=== PATIENT | male | born 1950 | race Caucasian/White ===

== ENCOUNTER 2018-02-15 20:03 | Emergency (ER) | payer OTHER, SELFPAY ==
[2018-02-15 20:05] VITALS: BP 153/87; PULSE 78; TEMP 36.7; O2SAT 96
--- NOTE | 2018-02-15 20:28 | ED.GENADUL ---
Disposition Clinical Impression: Left otitis externa Disposition: HOME Condition: Good Instructions: Neomycin/Polymyxin B/Hydrocortisone (Into the ear), Otitis Externa (ED) Additional Instructions: Place 4 drops of the Cortisporin in the left ear 4 times a day for the next week. Follow-up with your doctor at the end of the week if not better. Return to ED if significantly worse with increasing pain, swelling, fever. Referrals: Jama Melgar [Primary Care Provider] - Medical Decision Making - Medical Decision Making Patient with a left otitis externa that should respond to Cortisporin eardrops. He has not been swimming and does not have any purulent drainage. He may follow-up with primary care at the end of the week if not getting better and can be switched over to Ciprodex at that time if he does not respond to Cortisporin. He should return to the ED if he has significant pain, swelling, fever. History of Present Illness - General Chief complaint: EarProblem Stated complaint: EAR INFECTION Time Seen by Provider: 02/15/18 20:27 Source: patient Mode of arrival: ambulatory Limitations: no limitations - History of Present Illness Initial comments: Patient presents to the ED with left ear pain that has worsened over the day. He noticed a little bit of discharge and drainage out of it this morning. His hearing is muffled. He does tend to scratch and dig his ears but does not really stick Q-tips deep into the ear. He denies any other URI type symptoms. He has no fever. He is not diabetic. - Related Data Tramadol HCl 50 mg PO PRN tab-cap 01/20/18 Acetaminophen 650 mg PO PRN PRN 02/15/18 Neomy Sulf/Polymyx B Sulf/Hc [Cortisporin Ear Suspension] 10 ml QID btl 02/15/18 Allergies Allergy/AdvReac Type Severity Reaction Status Date / Time coconut oil Allergy Unknown Unverified 02/15/18 20:10 pineapple Allergy Unknown Unverified 02/15/18 20:10 hydrocodone bitartrate AdvReac Intermediate bradycardia Unverified 02/15/18 20:10 [From Vicodin] oxycodone AdvReac Intermediate Other (See Unverified 02/15/18 20:10 Comment) Review of Systems Constitutional: denies: chills, fever Eyes: denies: eye discharge ENT: ear pain. denies: throat pain, congestion Respiratory: denies: cough Skin: denies: rash, change in color Neurological: denies: headache Past Medical History - Past Medical History Medical history: CVA/TIA Bradycardia Surgical history: herniorraphy, vascetomy, other (B TKR) - Social History Smoking status: former smoker General Exam - General Limitations: no limitations General appearance: alert, in no apparent distress - Head Head exam: Present: atraumatic, normocephalic - Eye Eye exam: Present: normal apperance, PERRL - ENT ENT exam: Present: other (Right external ear and canal normal. Right TM slightly opacified but no bulging or erythema. Left external ear normal but tender and painful with manipulation. Canal is swollen but I see no obvious debris. TM is difficult to visualize on the left. Appears to be slightly opacified like the right but does not appear to have erythema or bulging.) - Neck Neck exam: Present: normal inspection, full ROM - Neurological Exam Neurological exam: Present: alert, oriented X3, CN II-XII intact. Absent: motor sensory deficit - Skin Skin exam: Absent: rash, erythema Course Vital Signs - 24 hr 02/15/18 20:05 Temperature 98.1 F Pulse 78 Blood Pressure 153/87 Pulse Oximetry 96
[2018-02-15] MEDS: Cortisporin OTIC SUSP 10 ML BTL (20:39)
== END 2018-02-15 20:40 | disposition home or self-care (01) ==
PROVIDERS: Emergency Provider Emergency Medicine; PCP Family Medicine
DX: H60.502 Unspecified acute noninfective otitis externa, left ear (principal)
CPT/HCPCS: 99283

== ENCOUNTER 2018-02-17 10:34 | Emergency (ER) | payer OTHER, SELFPAY ==
[2018-02-17 10:53] VITALS: BP 169/105; PULSE 80; RESP 16; TEMP 37.1; O2SAT 99
--- NOTE | 2018-02-17 11:07 | ED.GENADUL ---
Disposition Clinical Impression: Otitis externa Disposition: HOME Condition: Good Instructions: Otitis Externa (ED) Additional Instructions: Take medications as prescribed. Our care management team will work towards getting you a follow-up appointment in otolaryngology clinic. Tylenol and/or ibuprofen as needed for pain. Return if you develop a fever, worsening pain, or any other acute concerns. Prescriptions: Levofloxacin [Levaquin] 750 mg PO DAILY #10 tablet Medical Decision Making - Medical Decision Making 67-year-old male presents with persistent left ear pain. He does have persistent signs of otitis externa and I will have him continue the Cortisporin drops. Cannot exclude a bullous myringitis will place him on Levaquin which will also cover for the less likely possibility of mastoiditis. We will ask care management to arrange a follow-up in otolaryngology clinic. He will can escalate his outpatient management of pain to include Tylenol and ibuprofen. Return precautions to the ER were discussed with patient History of Present Illness - General Chief complaint: EarProblem Stated complaint: EAR PROBLEM Time Seen by Provider: 02/17/18 10:37 Source: patient, RN notes reviewed Mode of arrival: ambulatory Limitations: no limitations - History of Present Illness Initial comments: 67-year-old male presents with persistent left ear pain since being seen in the emergency department on February 15. At that time he had evidence of otitis externa and was started on Cortisporin drops. Since that time he has had constant, moderate to severe left-sided ear pain without significant exacerbating or ameliorating factors. It does improve minimally so with ibuprofen at home. Has not had fever or drainage. Is not a difficulty swallowing or change to voice. No other modifying factors per - Related Data Tramadol HCl 50 mg PO PRN tab-cap 01/20/18 Acetaminophen 650 mg PO PRN PRN 02/15/18 Neomy Sulf/Polymyx B Sulf/Hc [Cortisporin Ear Suspension] 10 ml QID btl 02/15/18 Ibuprofen 200 - 400 mg PO PRN PRN 02/17/18 Levofloxacin [Levaquin] 750 mg PO DAILY #10 tablet 02/17/18 Allergies Allergy/AdvReac Type Severity Reaction Status Date / Time coconut oil Allergy Unknown Unverified 02/17/18 10:57 pineapple Allergy Unknown Unverified 02/17/18 10:57 hydrocodone bitartrate AdvReac Intermediate bradycardia Unverified 02/17/18 10:57 [From Vicodin] oxycodone AdvReac Intermediate Other (See Unverified 02/17/18 10:57 Comment) Review of Systems Other: 6 systems reviewed, otherwise negative Past Medical History - Past Medical History Medical history: CVA/TIA Bradycardia Surgical history: herniorraphy, vascetomy, other (B TKR) General Exam - General Limitations: no limitations General appearance: alert, in no apparent distress - Head Head exam: Present: atraumatic, normocephalic - Eye Eye exam: Present: PERRL - ENT ENT exam: Present: normal orophraynx, other (Left tympanic membrane is not visualized due to what appears to be bolus like swelling of the ear canal, there is no drainage, there is appear to be patency to the external ear canal. Right hepatic and brain unremarkable. There is no significant lymphadenopathy of the neck ) - Neck Neck exam: Present: normal inspection, tenderness, full ROM. Absent: lymphadenopathy - Respiratory Respiratory exam: Present: normal lung sounds bilaterally. Absent: respiratory distress, chest wall tenderness - Cardiovascular Cardiovascular Exam: Present: regular rate, normal rhythm - GI/Abdominal GI/Abdominal exam: Present: soft. Absent: distended, tenderness - Extremities Exam Extremities exam: Present: normal inspection, normal capillary refill - Neurological Exam Neurological exam: Present: alert, oriented X3 - Psychiatric Psychiatric exam: Present: normal affect, normal mood - Skin Skin exam: Present: warm, dry, intact Course Vital Signs - 24 hr 02/17/18 10:53 Temperature 37.1 C Pulse 80 Respiratory 16 Rate Blood Pressure 169/105 Pulse Oximetry 99
--- NOTE | 2018-02-18 08:26 | PDOC.ERCMPRO ---
Care Management Progress Note 02/18-Dr. Connolly requested assistance with an ENT f/u in one week for otitis extera (recurrent). Referral faxed to ENT today,
== END 2018-02-17 11:26 | disposition home or self-care (01) ==
PROVIDERS: Emergency Provider Emergency Medicine; PCP Family Medicine
DX: H60.502 Unspecified acute noninfective otitis externa, left ear (principal); H92.02 Otalgia, left ear
CPT/HCPCS: 99283

== ENCOUNTER 2019-02-22 01:14 | Outpatient (CLI) | payer OTHER, SELFPAY ==
--- NOTE | 2019-02-22 14:27 | DI.US_ITS ---
SYMPTOMS/DIAGNOSIS: ? 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 There is no evidence of a inguinal hernia seen on the right or on the left. IMPRESSION: No sonographic evidence to suggest an inguinal hernia.
== END 2019-02-22 01:34 ==
PROVIDERS: PCP Family Medicine; Visit Provider Surgery
DX: K40.21 Bilateral inguinal hernia, without obstruction or gangrene, recurrent (principal)
CPT/HCPCS: 76857

== ENCOUNTER 2019-07-31 18:43 | Outpatient (REF) | payer OTHER, SELFPAY ==
[2019-07-31 18:07] LABS: ALT 28 U/L (16-63); AST 17 U/L (15-37); Albumin 3.9 g/dL (3.4-5.0); Alkaline Phosphatase 63 U/L (46-116); Anion Gap 11.8 mmol/L (3-11); BUN 17 mg/dL (7-18); Bilirubin, Total 0.3 mg/dL (0.2-1.0); CO2 25.2 mmol/L (21.0-32.0); CREATININE 0.86 mg/dL (0.70-1.30); Calcium 8.3 mg/dL (8.5-10.1); Chloride 103 mmol/L (98-107); Glucose 87 mg/dL (74-106); Potassium 4.1 mmol/L (3.5-5.1); Sodium 140 mmol/L (136-145); Total Protein 6.9 g/dL (6.4-8.2)
[2019-07-31 18:15] LABS: HGB 13.7 g/dL (13.5-17.5); Mean Corp. HGB Concentration 33.4 g/dL (32.0-36.0); Mean Corpuscular Hemoglobin 30.3 pg (27.0-33.0); Mean Corpuscular Volume 90.7 fL (80-95); Mean Platelet Volume 9.7 fL (8.0-11.0); Platelet Count 269 x1000/uL (130-400); RBC 4.52 m/cumm (4.50-6.00); RBC Distribution Width 14.2 % (11.8-14.1); White Blood Cell Count 6.34 k/cumm (4.4-10.8)
[2019-07-31 18:56] LABS: Hemoglobin A1C 6.1 % (3.8-5.6)
== END 2019-07-31 19:03 ==
LOC: NCHCN 18:43
PROVIDERS: PCP Family Medicine; Visit Provider Nurse Practitioner Family
DX: R03.0 Elevated blood-pressure reading, without diagnosis of hypertension (principal)
CPT/HCPCS: 80053; 85027; 83036

== ENCOUNTER 2019-08-01 14:09 | Outpatient (CLI) | payer OTHER, SELFPAY ==
--- NOTE | 2019-08-01 15:38 | DI.RAD_ITS ---
EXAM: XR RIBS RT W PA LAT CHEST INDICATION: RIB PAIN, R07.81. COMPARISON: CHEST 2 VIEWS PA,LAT from 11/26/2017 TECHNIQUE: 2D digital imaging was performed. FINDINGS: The heart size and pulmonary vasculature are within normal limits. The lungs are clear. There is an old calcified granuloma in the left lung. No pleural effusion or pneumothorax is identified. There are minimally displaced fractures involving the anterior aspects of the right 7th and 8th ribs. IMPRESSION: Minimally displaced fractures involving the anterior aspects of the right 7th and 8th ribs.
== END 2019-08-01 14:29 ==
PROVIDERS: PCP Family Medicine; Visit Provider Nurse Practitioner Family
DX: R07.81 Pleurodynia (principal); S22.41XA Multiple fractures of ribs, right side, initial encounter for closed fracture
CPT/HCPCS: 71046; 71100

== ENCOUNTER 2019-08-14 22:14 | Outpatient (REF) | payer OTHER, SELFPAY ==
[2019-08-14 19:57] LABS: HCT 44.7 % (40.0-50.0); HGB 14.8 g/dL (13.5-17.5); Mean Corp. HGB Concentration 33.1 g/dL (32.0-36.0); Mean Corpuscular Hemoglobin 30.6 pg (27.0-33.0); Mean Corpuscular Volume 92.5 fL (80-95); Mean Platelet Volume 10.3 fL (8.0-11.0); Platelet Count 244 x1000/uL (130-400); RBC 4.83 m/cumm (4.50-6.00); RBC Distribution Width 14.6 % (11.8-14.1); White Blood Cell Count 5.59 k/cumm (4.4-10.8)
[2019-08-14 20:18] LABS: ALT 34 U/L (16-63); AST 18 U/L (15-37); Albumin 4.3 g/dL (3.4-5.0); Alkaline Phosphatase 96 U/L (46-116); Anion Gap 8.8 mmol/L (3-11); BUN 17 mg/dL (7-18); Bilirubin, Total 0.4 mg/dL (0.2-1.0); CO2 27.2 mmol/L (21.0-32.0); CREATININE 0.93 mg/dL (0.70-1.30); Calcium 8.5 mg/dL (8.5-10.1); Chloride 105 mmol/L (98-107); Glucose 98 mg/dL (74-106); Potassium 4.5 mmol/L (3.5-5.1); Sodium 141 mmol/L (136-145); Total Protein 7.1 g/dL (6.4-8.2)
[2019-08-14 20:29] LABS: Hemoglobin A1C 6.1 % (3.8-5.6)
== END 2019-08-14 22:34 ==
LOC: NCHCN 22:14
PROVIDERS: PCP Family Medicine; Visit Provider Nurse Practitioner Family
DX: R03.0 Elevated blood-pressure reading, without diagnosis of hypertension (principal)
CPT/HCPCS: 80053; 85027; 83036

== ENCOUNTER 2021-02-05 11:41 | Outpatient (CLI) | payer OTHER, SELFPAY ==
--- NOTE | 2021-02-05 11:15 | DI.RAD_ITS ---
Exam(s) XR SHOULDER LT COMPLETE 2+V EXAM: XR SHOULDER LT COMPLETE 2+V CLINICAL HISTORY: LEFT SHOULDER PAIN. TECHNIQUE: 2D digital imaging was performed. COMPARISON: CR CHEST 2 VIEWS PA,LAT from 11/26/2017 CR CHEST 2 VIEWS PA,LAT from 11/26/2017 CR XR RIBS RT W PA LAT CHEST from 08/01/2019 CR XR RIBS RT W PA LAT CHEST from 08/01/2019 FINDINGS: BONES: No acute fracture is present. No bony destructive lesion is seen. There are old left upper ri b fracture deformities. JOINTS: No dislocation present. Glenohumeral joint space is well maintained. Minimal spurring at th e glenoid. Minimal spurring at the AC joint and undersurface of the acromion. SOFT TISSUE: Normal. IMPRESSION: Mild degenerative changes. Old left upper rib fractures. DATA REPOSITORY: RADIATION DOSE DELIVERED:
== END 2021-02-05 11:42 | disposition home or self-care (01) ==
LOC: DIORS 11:41
PROVIDERS: PCP Family Medicine; Referring Provider Family Medicine; Visit Provider Student in an Organized Health Care Education/Training Program
DX: M19.012 Primary osteoarthritis, left shoulder (principal); S22.42XD Multiple fractures of ribs, left side, subsequent encounter for fracture with routine healing; W19.XXXD Unspecified fall, subsequent encounter
CPT/HCPCS: 73030

== ENCOUNTER 2021-05-21 20:34 | Outpatient (REF) | payer OTHER, SELFPAY ==
[2021-05-21 20:38] LABS: Anion Gap 7.8 mmol/L (3-11); BUN 13 mg/dL (7-18); CO2 29.2 mmol/L (21.0-32.0); CREATININE 0.9 mg/dL (0.70-1.30); Calcium 9.2 mg/dL (8.5-10.1); Calculated LDL 169 mg/dL (<100); Chloride 102 mmol/L (98-107); Cholesterol 233 mg/dL (<200); Glucose 106 mg/dL (74-106); HDL Cholesterol 44 mg/dL (40-60); Potassium 4.7 mmol/L (3.5-5.1); Sodium 139 mmol/L (136-145); Triglyceride 100 mg/dL (<150)
== END 2021-05-21 20:35 | disposition home or self-care (01) ==
LOC: NCHCN 20:34
PROVIDERS: PCP Family Medicine; Visit Provider Family Medicine
DX: I10 Essential (primary) hypertension (principal); Z00.00 Encounter for general adult medical examination without abnormal findings
CPT/HCPCS: 80048; 80061

== ENCOUNTER 2021-05-21 23:16 | Observation (INO) | payer OTHER, SELFPAY ==
[2021-05-21] VITALS (8 sets, daily range): BP systolic 102–121; BP diastolic 57–60; PULSE 84–96; RESP 9–18; TEMP 36.9; O2SAT 92–96
--- NOTE | 2021-05-21 23:15 | DI.RAD_ITS ---
Exam(s) XR PORTABLE CHEST AP EXAM: XR PORTABLE CHEST AP CLINICAL HISTORY: syncope TECHNIQUE: 2D digital imaging was performed. COMPARISON: CR CHEST 2 VIEWS PA,LAT from 09/25/2017 CR XR SHOULDER LT COMPLETE 2+V from 02/05/2021 FINDINGS: LUNGS: Clear. No pleural abnormality seen. HEART: Within normal limits for projection. MEDIASTINUM: Normal. BONES: Unremarkable. IMPRESSION: No acute pulmonary findings. DATA REPOSITORY: RADIATION DOSE DELIVERED:
--- NOTE | 2021-05-21 23:15 | RT.EKG_ITS ---
APPROVED REPORT Exam: Resting ECG Reason for Exam: left sided weakness Patient Location: E HR:94 bpm ECG Measurements Heart Rate 94 AXIS NV 144 P 38 QRSd 79 QRS 10 QT 340 T 59 QTc 425 Conclusion Sinus rhythm...normal P axis, V-rate 60- 99 Normal [place] No Acute ST Changes
--- NOTE | 2021-05-21 23:32 | ED.GENADUL_ITS ---
Discharge Plan Disposition Patient Disposition: [facility] INPATIENT Condition: Stable Discharge Details Clinical Impression: Syncope Primary Care Provider: Jama Melgar ED Provider: Chauncey Barraza [place] Meds and New Rx's Prescriptions: No Action lisinopril 5 mg tablet 5 mg PO DAILY RF: 0 acetaminophen 325 MG tablet 650 mg PO PRN PRNRF: 0 ibuprofen 200 MG capsule 200 - 400 mg PO PRN PRNRF: 0 Medical Decision Making Patient presenting with 2 episodes of syncope while coming to hospital due to s haking chills and sweats after receiving Pneumovax this morning. Left arm is very painful but there is no erythema or swelling. Patient denies feeling unwell prior to vaccination. He denies any headache, chest pain, shortness of breath, abdominal pain, back pain, neurologic changes. IV established and fluids started. Sinus rhythm on the monitor. EKG is normal. Laboratory studies sent. Chest x-ray and urine ordered. Laboratory studies are unremarkable other than a white count that is elevated to 20.8. Hemoglobin normal. Chemistries unremarkable. Troponin negative. Urinalysis negative except for some small ketones. No evidence of UTI. Chest x-ray unremarkable per preliminary radiology read. Patient has remained in sinus rhythm on the monitor. May all be reaction to the Pneumovax shot he had today but given 2 episodes of syncope with sinus rhythm noted on the monitor soon after the second episode will admit for observation overnight on telemetry. Discussed with hospitalist who is in agreement with admission. Medical Records Medical records reviewed: Yes I reviewed the patient's medical records. Lab Data Lab results reviewed: Yes I reviewed the patient's lab results. ECG Data Attestation: I personally reviewed and interpreted this ECG (s) as follows: Prior ECG tracings: not available for review Interpretation: see EKG HPI General Mode of arrival: wheelchair . Date/Time Provider Initiated Documentation: 05/21/21 23:27 . Limitations to Documentation: no limitations . Information obtained by: patient, RN notes reviewed and old records reviewed . HPI Narrative: Patient presents to the ED with syncope. Patient received Pneumovax late this morning. Left arm is extremely painful and sore. He developed shaking chills this evening which is actually what prompted him to come to the ED. He felt weak and was diaphoretic. In the truck on the way to the hospital he passed out. He was awake for nursing when he was brought into the ED but passed out a second time in the wheelchair on the way to the room. On my arrival to the room, he is awake and alert. He is diaphoretic. He is nonfocal. He denies any pain except to his left arm where he had his shot. There were no other vaccinations or medication changes. He was not feeling unwell prior to getting his vaccination this morning. Related Data Home Medications Medication Instructions Recorded Confirmed acetaminophen 650 mg PO PRN PRN 02/15/18 02/05/21 ibuprofen 200 - 400 mg PO PRN PRN 02/17/18 02/05/21 lisinopril 5 mg tablet 5 mg PO DAILY 10/13/19 05/21/21 Allergies Allergy/AdvReac Type Severity Reaction Status Date / Time coconut oil Allergy Unknown Unverified 02/05/21 11:18 pineapple Allergy Unknown Unverified 02/05/21 11:18 hydrocodone bitartrate AdvReac Intermediate bradycardia Unverified 02/05/21 11:18 [From Vicodin] oxycodone AdvReac Intermediate Bradycardia, Unverified 02/05/21 11:21 Hypotension General Stated Complaint: GenMedical DEEPTI: 3 Review of Systems Narrative: 04/10 Review of Systems completed and is negative except as stated above in HPI (Systems reviewed: Const, Eyes, ENT, Resp, CV, GI, , MSK, Skin, Neuro) [facility] Active Problem List Carpal tunnel syndrome of left wrist (Acute) Cervical radiculopathy (Acute) Tendinitis of long head of biceps brachii of left shoulder (Acute) Acromioclavicular joint separation (Acute) Encounter for screening for other viral diseases (Acute) Skin tag (Acute) Trigger finger, right ring finger (Acute) Discharge planning issues (Acute) Acute alcoholic intoxication in alcoholism (blood level 0.08-0.29) (Acute) Pneumothorax on left (Acute) Medical History Fracture of five ribs of left side HTN (hypertension) Surgical History 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 DOMINGUEZ Left Knee/ Dr. Domingeuz S/P bilateral inguinal hernia repair Dr. Schultz (1985) Social History Smoking/Tobacco Use Status: Former Tobacco Use Smoking risk assessment performed?: Yes Alcohol Intake: current Alcohol Intake frequency: 0-2 drinks per day Drug use: Never Current gender identity: male Do you feel safe in your relationship?: Yes Exam Narrative Exam Narrative: Const: WDWN male in NAD. HEENT: NC/AT. Normal facial exam. Eyes: Normal conjunctiva and sclera. Neck: Supple. Trachea midline. Lungs: Normal respiratory effort. Lungs are clear. Cor: RRR without murmur/gallop. Good radial pulses. GI: Soft. NT/ND. No guarding or rebound. Neuro: A+O x 3. Normal speech, mentation, gait. Cranial nerves II - XII grossly intact. No gross motor or sensory deficit. Ext: No C/C/E. Limited ROM of LUE due to pain from vaccination. NVI distal. Skin: Warm and diaphoretic without rash. Course Vital Signs Vital signs: Vital Signs Temperature 98.5 F 05/21/21 23:25 Pulse 84 05/21/21 23:25 Respiratory Rate 18 05/21/21 23:25 Blood Pressure 102/57 L 05/21/21 23:25 Pulse Oximetry 95 05/21/21 23:25 Temperature 98.5 F 05/21/21 23:25 Temperature Source Oral 05/21/21 23:25 Pulse 84 05/21/21 23:25 Respiratory Rate 18 05/21/21 23:25 Blood Pressure 102/57 L 05/21/21 23:25 Blood Pressure Position Supine 05/21/21 23:25 Pulse Oximetry 95 05/21/21 23:25 Oxygen Delivery Method Room Air 05/21/21 23:25 Oxygen Flow Rate 0 05/21/21 23:25 Pain Level 5 05/21/21 23:25
[2021-05-21 23:43] LABS: Source Nasal/Nares
[2021-05-21 23:46] LABS: Absolute Lymphocyte Count 2.23 10^3/uL (1.2-3.4); Absolute Neutrophil Count 16.85 10^3/uL (1.2-6.7); Basophils % 0.2; Eosinophils % 0.5; HGB 14.7 g/dL (13.5-17.5); Immature Grans % 0.5; Lymphocytes % 10.7; MCH 29.8 pg (27.0-33.0); MCV 93.1 fL (80-95); MPV 9.5 fL (8.0-11.0); Monocytes % 7.2; Neutrophils % 80.9; Nucleated RBC 0 %; Platelet Count 336 10^3/uL (130-400); RBC 4.94 10^6/uL (4.36-5.78); RDW 13.7 % (11.8-14.1); RDW-SD 46.8 fL; WBC 20.83 10^3/uL (4.4-10.8)
[2021-05-21] MEDS: Lactated Ringers 1,000 ML 1000 ML IV (23:46)
[2021-05-21 23:48] LABS: Absolute Basophil Count 0.04 10^3/uL (0.0-0.2); Lactate 2.2 mmol/L (0.6-1.4)
[2021-05-22] VITALS (22 sets, daily range): BP systolic 103–116; BP diastolic 54–71; PULSE 69–97; RESP 10–30; TEMP 37.2; O2SAT 90–96
[2021-05-22 00:11] LABS: ALT 17 U/L (16-63); AST 12 U/L (15-37); Albumin 3.7 g/dL (3.4-5.0); Alkaline Phosphatase 84 U/L (46-116); Anion Gap 10.5 mmol/L (3-11); BUN 16 mg/dL (7-18); Bilirubin, Total 0.4 mg/dL (0.2-1.0); CO2 24.5 mmol/L (21.0-32.0); CREATININE 1.1 mg/dL (0.70-1.30); Calcium 8.7 mg/dL (8.5-10.1); Chloride 102 mmol/L (98-107); Glucose 160 mg/dL (74-106); Magnesium 2.1 mg/dL (1.8-2.4); Potassium 3.8 mmol/L (3.5-5.1); Sodium 137 mmol/L (136-145); TSH (W/Ref FT4) 4.14 uIU/mL (0.36-3.74)
[2021-05-22 00:12] LABS: Troponin I < 0.05 ng/mL (<0.06)
[2021-05-22 00:30] LABS: Bilirubin Small (Negative); Blood Negative (Negative); Clarity Clear (Clear); Glucose Negative (Negative); Ketones 15 mg/dL (Negative); Leukocyte Esterase Negative (Negative); Nitrite Negative (Negative); Specific Gravity 1.025 (1.005-1.025); pH 6.5 (5-8)
--- NOTE | 2021-05-22 00:33 | DI.VRAD_ITS ---
PROCEDURE INFORMATION: Exam: XR Chest Exam date and time: 05/21/2021 11:29 PM Age: 70 years old Clinical indication: Other: Syncope TECHNIQUE: Imaging protocol: XR of the chest. Views: 1 view. COMPARISON: CR XR RIBS RT W PA LAT CHEST 08/01/2019 3:38 PM FINDINGS: Lungs: Unremarkable. No consolidation. Pleural spaces: Unremarkable. No pleural effusion. No pneumothorax. Heart/Mediastinum: Unremarkable. No cardiomegaly. Bones/joints: Unremarkable. IMPRESSION: No acute findings. Dictated and Authenticated by: Javi Gordon MD. Ordering:ABHIJEET Grossman MD
[2021-05-22] MEDS: Lactated Ringers 1,000 ML 200 ML IV (00:49)
--- NOTE | 2021-05-22 02:12 | W.PM.HP.N ---
Date of service: 05/22/21 Time of Service: 02:13 Assessment and Plan Assessment and plan (1) Syncope: Status: Acute Assessment and plan: Whlie the patient does have a h/o vasavagal syncopal episodes, he did present with a slightly lower lip following vaccine administration earlier in the day. Given this, though other features of anaphylaxis are absent, it is certainly plausible that there is an anaphylactic component to what happened. Will treat with solumedrol, pepcid, benadryl and monitor for improvement of sx. Obtain monocyte tryptase. Will monitor on tele and hydrate with IVF. Trend troponins. Check orthostatics. (2) Reaction to Pneumovax immunization: Status: Acute Assessment and plan: As above (3) Leucocytosis: Status: Acute Assessment and plan: Suspect that this is due to the vaccination and/or reaction to it. CXR negative. Procalcitonin is negative. Will trend WBCs, though this is skewed by the fact that the patient will be getting steroids. CRP is slightly elevated, but is not specific. IF spikes a fever, would obtain blood cultures. (4) Dehydration: Status: Acute Assessment and plan: IVF. Likely responsible for lactic acidosis. Trend LA. (5) DVT prophylaxis: Status: Acute Assessment and plan: SC enoxaparin (6) Discharge planning issues: Status: Acute Assessment and plan: Full code Place in observation status History of Present Illness History of Present Illness Chief Complaint: Two syncopal episodes following a pneumovax vaccine Narrative: Mr Charles is a 70 year old male with PMHx of prior vasovagal syncopal episodes (10-12 of them), PACs, hypertension, , traumatic pneumothorax, cervical radiculopathy, who is s/p pneumovax on 05/21/21 and presented to [facility] ED in the evening, initially planning to go to the ED for shaking chills and sweats. The patient's felt his bottom lip looked a little bit swollen. On the way to the ED, while in the vehicle, the patient became unresponsive. We do not know how long he was unconscious exactly, but he remembers waking up in the parking lot of the hospital and being taken to the ED in a wheel chair, where he had another syncopal episode, this time witnessed, though not yet on a asl interpreter. Vital signs were stable, and when the monitor was hooked up/EKG obtained, the patient was in NSR. The patient was found to have a leucocytosis and monocytosis. He did not have any other signs of anaphylaxis, specifically denying itching, difficulty swallowing, swelling of the tongue, shortness of breath. Observation on the hospitalist service was requested Review of Systems All systems reviewed & are unremarkable except as noted in HPI and below [facility] Active Problem List (Updated 05/22/21 @ 03:19 by Rylee Worrell MD) Leucocytosis (Acute) Dehydration (Acute) DVT prophylaxis (Acute) Reaction to Pneumovax immunization (Acute) Syncope (Acute) Carpal tunnel syndrome of left wrist (Acute) Cervical radiculopathy (Acute) Tendinitis of long head of biceps brachii of left shoulder (Acute) Acromioclavicular joint separation (Acute) Skin tag (Acute) Discharge planning issues (Acute) Medical History (Updated 05/22/21 @ 03:19 by Rylee Worrell MD) Acute alcoholic intoxication in alcoholism (blood level 0.08-0.29) Cataract Fracture of five ribs of left side HTN (hypertension) Pneumothorax on left Trigger finger, right ring finger Injected: 10/13/2019 Vasovagal syncope Surgical History (Updated 05/22/21 @ 03:15 by Rylee Worrell MD) H/O elbow surgery right tennis elbow surgery 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 DOMINGUEZ Left Knee/ Dr. Dominguez S/P bilateral inguinal hernia repair Dr. Schultz (1985) Family History (Updated 05/22/21 @ 03:13 by Rylee Worrell MD) Father Hypertension Stroke Social History (Updated 05/22/21 @ 03:16 by Rylee Worrell MD) Smoking/Tobacco Use Status: Current every day Tobacco Type: cigarettes Smoking packs per day: 1 Smoking cigarettes per day: 20.0 Counseling given: provider counseling and patient declined Smoking risk assessment performed?: Yes Alcohol Intake: current Alcohol Intake frequency: 0-2 drinks per day Drug use: Never Current gender identity: male Do you feel safe in your relationship?: Yes Meds Allergies and Home Medications Allergies Allergy/AdvReac Type Severity Reaction Status Date / Time coconut oil Allergy Unknown Unverified 08/11/21 11:18 pineapple Allergy Unknown Unverified 02/05/21 11:18 hydrocodone bitartrate AdvReac Intermediate bradycardia Unverified 02/05/21 11:18 [From Vicodin] oxycodone AdvReac Intermediate Bradycardia, Unverified 02/05/21 11:21 Hypotension Home Medications Medication Instructions Recorded Confirmed Type acetaminophen 650 mg PO PRN PRN 02/15/18 02/05/21 History ibuprofen 200 - 400 mg PO PRN PRN 02/17/18 02/05/21 History lisinopril 5 mg tablet 5 mg PO DAILY 10/13/19 05/21/21 History Exam Narrative Exam Narrative: General: Pleasant middle-aged male who looks well, is speaking in full sentences, A&Ox3 Neurological: A&Ox3, no focal deficits Psychiatric: Appropriate speech pattern/content Skin: Visible skin intact HEENT: Atraumatic, normocephalic, EOMI, dry MM, clear oropharynx, very mildly swollen lower lip, Mallampati 4, no submandibular or cervical lymphadenopathy, no goiter or JVD Cardiovascular: RRR, no m/r/g Lungs: CTAB Gastrointestinal: Soft, nontender, nondistended Genitourinary: deferred Extremities: No e/c/c; LUE deltoid injection site exquisitely tender but no evidence of induration/erythema Results Imaging Additional studies: CXR: No acute findings. EKG: HR 94, NSR, no acute ischemia Labs Result diagrams: 05/21/21 23:33 05/21/21 23:33 Labs: Laboratory Results - last 24 hr 05/21/21 05/21/21 05/21/21 23:33 23:33 23:33 WBC 20.83 H RBC 4.94 Hgb 14.7 Hct 46.0 MCV 93.1 MCH 29.8 MCHC 32.0 RDW 13.7 Plt Count 336 MPV 9.5 Immature Gran % 0.5 Neutrophils % 80.9 Lymphocytes % 10.7 Monocytes % 7.2 Eosinophils % 0.5 Basophils % 0.2 Nucleated RBC % 0 Absolute Neutrophils 16.85 H Absolute Lymphocytes 2.23 Absolute Monocytes 1.50 H Absolute Eosinophils 0.10 Absolute Basophils 0.04 VBG Lactate 2.2 H* Sodium 137 Potassium 3.8 Chloride 102 Carbon Dioxide 24.5 Anion Gap 10.5 BUN 16 Creatinine 1.1 Estimated GFR/1.73 m2 >= 60.00 Glucose 160 H Calcium 8.7 Magnesium 2.1 Total Bilirubin 0.4 AST 12 L ALT 17 Alkaline Phosphatase 84 Troponin I < 0.05 Total Protein 7.0 Albumin 3.7 TSH 4.14 H Free T4 0.80 Urine Color Urine Clarity Urine pH Ur Specific [place] Urine Protein Urine Ketones Urine Blood Urine Nitrite Urine Bilirubin Urine Urobilinogen Ur Leukocyte Esterase Urine Glucose COVID-19 Source 05/21/21 05/22/21 23:33 00:27 WBC RBC Hgb Hct MCV MCH MCHC RDW Plt Count MPV Immature Gran % Neutrophils % Lymphocytes % Monocytes % Eosinophils % Basophils % Nucleated RBC % Absolute Neutrophils Absolute Lymphocytes Absolute Monocytes Absolute Eosinophils Absolute Basophils VBG Lactate Sodium Potassium Chloride Carbon Dioxide Anion Gap BUN Creatinine Estimated GFR/1.73 m2 Glucose Calcium Magnesium Total Bilirubin AST ALT Alkaline Phosphatase Troponin I Total Protein Albumin TSH Free T4 Urine Color Yellow Urine Clarity Clear Urine pH 6.5 Ur Specific [place] 1.025 Urine Protein Negative Urine Ketones 15 H Urine Blood Negative Urine Nitrite Negative Urine Bilirubin Small H Urine Urobilinogen 2.0 H Ur Leukocyte Esterase Negative Urine Glucose Negative COVID-19 Source Nasal/Nares Last Vital Signs Temp 36.9 C 05/21/21 23:25 Pulse 83 05/22/21 01:15 Resp 14 05/22/21 01:20 BP 103/55 L 05/22/21 01:15 Pulse Ox 95 05/22/21 01:20
[2021-05-22 02:30] LABS: C-Reactive Protein 2.31 mg/dL (0.0-0.3)
[2021-05-22 03:15] LABS: Procalcitonin 0.1 ng/mL
[2021-05-22] MEDS: methylPREDNISolone SUCC 125 MG VIAL IVP (03:52)
[2021-05-22] MEDS: Normal Saline Flush 10 ML SYR IVP (03:53)
[2021-05-22] MEDS: diphenhydrAMINE 25 MG CAP 50 MG PO (03:54)
[2021-05-22] MEDS: FAMOTIDINE 20 MG/50 ML BAG 200 MG IVPB (04:01)
[2021-05-22 04:02] LABS: Troponin I < 0.05 ng/mL (<0.06)
[2021-05-22 07:29] LABS: Abs Immature Grans 0.12 10^3/uL (0.0-0.06); Absolute Basophil Count 0.04 10^3/uL (0.0-0.2); Absolute Monocyte Count 0.42 10^3/uL (0.1-0.8); Basophils % 0.2; Eosinophils % 0.1; HCT 43.8 % (40.0-50.0); HGB 14.1 g/dL (13.5-17.5); Immature Grans % 0.6; MCH 29.9 pg (27.0-33.0); MCHC 32.2 % (32.0-36.0); MCV 92.8 fL (80-95); MPV 9.5 fL (8.0-11.0); Monocytes % 2.1; Nucleated RBC 0 %; Platelet Count 231 10^3/uL (130-400); RBC 4.72 10^6/uL (4.36-5.78); RDW 13.7 % (11.8-14.1); RDW-SD 46.6 fL
[2021-05-22 07:30] LABS: Lactate 1.5 mmol/L (0.6-1.4)
[2021-05-22 07:49] LABS: Absolute Eosinophil Count 0.02 10^3/uL (0.0-0.7)
[2021-05-22 07:57] LABS: Anion Gap 12.1 mmol/L (3-11); BUN 11 mg/dL (7-18); CO2 21.9 mmol/L (21.0-32.0); CREATININE 0.8 mg/dL (0.70-1.30); Calcium 8.6 mg/dL (8.5-10.1); Calculated LDL 118 mg/dL (<100); Chloride 104 mmol/L (98-107); Cholesterol 169 mg/dL (<200); Glucose 179 mg/dL (74-106); HDL Cholesterol 42 mg/dL (40-60); Magnesium 2.1 mg/dL (1.8-2.4); Potassium 4.2 mmol/L (3.5-5.1); Sodium 138 mmol/L (136-145); Triglyceride 49 mg/dL (<150)
[2021-05-22] MEDS: Enoxaparin 40 MG/0.4 ML SYR SC (08:06)
[2021-05-22 08:07] LABS: Troponin I < 0.05 ng/mL (<0.06)
[2021-05-22 08:15] LABS: C-Reactive Protein 6.49 mg/dL (0.0-0.3)
[2021-05-22 09:16] LABS: COVID-19 PCR Negative (Negative)
--- NOTE | 2021-05-22 10:55 | W.PM.DS.N ---
Date of service: 05/22/21 Time of Service: 10:56 DS: Diagnosis Discharge Diagnosis (1) Syncope: Status: Acute (2) Reaction to Pneumovax immunization: Status: Acute (3) Leucocytosis: Status: Acute (4) Dehydration: Status: Acute Discharge Plan Disposition Patient Disposition: HOME Condition: Stable Discharge Details Reason For Visit: Two syncopal episodes, adverse reaction to pneumov Admit Date/Time: 05/22/21 01:33 Admit Provider: Rylee Worrell Attending Provider: Rylee Worrell Primary Care Provider: Jama Melgar [facility] Course Hospital Course: Presented to the ED after receiving pneumonvax and developing shaking, lower lip swelling and generally not feeling well. he proceeded to have 2 syncopal episodes, no evidence of seizure activity. [place]l diaphoretic and sense he was going to go out. his work up in the ED showed a leucocytosis and monocytosis. He did not have any other signs of anaphylaxis, specifically denying itching, difficulty swallowing, swelling of the tongue, shortness of breath. he has had multiple syncopal episodes in the past. He was referred to observation overnight on telemetry, remains hemodynamically stable with no dysrhythmias. He feels at his baseline and is requesting discharge to home. A holter monitor has been placed at discharge. he is being discharged to home with no services. he will f/u with pcp outpatient or return sooner for new or worsening symptoms. serial troponins have been negative. discharge discussed with Dr Davis Home Meds and New Rx's Prescriptions: Continued lisinopril 5 mg tablet 5 mg PO DAILY RF: 0 acetaminophen 325 MG tablet 650 mg PO PRN PRNRF: 0 ibuprofen 200 MG capsule 200 - 400 mg PO PRN PRNRF: 0 Discharge Instructions Instructions: Syncope (DC) Stand Alone Forms: Nursing Discharge Form Referrals: Jama Melgar [Primary Care Provider] - (Please call you PCP to make follow up appointment for 1-2 weeks.) Activity:: Activity as Tolerated Equipment/Supplies:: No Equipment Needed Diet:: As Tolerated Discharge Orders Discharge Orders: Discharge Order (Routine); Ordered 05/22/21 Ordered By: Karly Parra Other Ambulatory Orders: Holter Monitor (Routine) Timeframe: [id number] Facility: [facility] - Location: Respiratory Therapy Ordered By: Karly Parra Discharge Data Discharge Date/Time-TO BE ENTERED AT DEPARTURE: 05/22/21 12:06 DS: Summary Time Spent with Patient providing and/or coordinating discharge services: Less than 30 minutes Status at Discharge Functional status at discharge: independent ambulation Overall status at discharge: patient is back to baseline Mental Status: mental status grossly normal Speech and Movement: speech and movement normal Mood: congruent mood Affect: normal affect Exam Const General: cooperative, healthy appearing, comfortable and no acute distress Nutritional Appearance: average body habitus Orientation: alert, awake and oriented x3 HENMT Head: normal to inspection, normocephalic and atraumatic Mouth: oral mucosae normal Resp Effort & Inspection: normal respiratory effort Auscultation: clear to auscultation bilaterally Cardio Rate: regular rate Rhythm: regular rhythm GI Inspection: normal to inspection Palpation: soft Auscultation: normal bowel sounds Skin General skin exam: no rashes or lesions noted Neuro General: patient alert, patient awake and patient oriented x3 Cognition: normal cognition Speech: speech normal Gait: normal gait Extrem General: normal to inspection and full ROM Psych Mental Status: mental status grossly normal Speech and Movement: speech and movement normal Mood: congruent mood Affect: normal affect DS: Data Vitals/I&O Vitals and I&O: Vital Signs Temperature 37.2 C 05/22/21 03:52 Temperature Source Oral 05/21/21 23:25 Pulse 78 05/22/21 07:03 Pulse Rhythm Regular 05/22/21 09:04 Pulse 97 H 05/22/21 01:20 Respiratory Rate 18 05/22/21 03:05 Respiratory Effort Non-Labored 05/22/21 09:04 Respiratory Depth Normal 05/22/21 09:04 Respiratory Pattern Normal 05/22/21 09:04 Blood Pressure 112/68 05/22/21 05:37 Blood Pressure Mean 66 05/22/21 01:15 Blood Pressure Position Supine 05/21/21 23:25 Pulse Oximetry 95 05/22/21 03:05 Oxygen Delivery Method Room Air 05/22/21 03:05 Oxygen Flow Rate 0 05/22/21 03:05 Pain Level 4 05/22/21 03:52 Intake & Output 05/21/21 05/21/21 05/22/21 11:59 23:59 11:59 Output Total 1000 / 1000 Balance -1000 / -1000 Weight 78.471 kg 81.783 kg Output: Urine 1000 / 1000 Other: Urine Color Yellow Urine Appearance Clear Voiding Methods Toilet Data Completed and Pending Labs on day of discharge: Labs from last 24 hours 05/22/21 05/22/21 05/22/21 07:10 07:10 07:10 WBC 20.00 H RBC 4.72 Hgb 14.1 Hct 43.8 MCV 92.8 MCH 29.9 MCHC 32.2 RDW 13.7 Plt Count 231 D MPV 9.5 Immature Gran % 0.6 Neutrophils % 94.0 Lymphocytes % 3.0 Monocytes % 2.1 Eosinophils % 0.1 Basophils % 0.2 Nucleated RBC % 0 Absolute Neutrophils 18.80 H Absolute Lymphocytes 0.60 L Absolute Monocytes 0.42 Absolute Eosinophils 0.02 Absolute Basophils 0.04 VBG Lactate 1.5 H Sodium 138 Potassium 4.2 Chloride 104 Carbon Dioxide 21.9 Anion Gap 12.1 H BUN 11 Creatinine 0.8 Estimated GFR/1.73 m2 >= 60.00 Glucose 179 H Calcium 8.6 Magnesium 2.1 Total Bilirubin AST ALT Alkaline Phosphatase Troponin I < 0.05 C-Reactive Protein 6.49 H Total Protein Albumin Triglycerides 49 Total Cholesterol 169 LDL Cholesterol, Calc 118 H HDL Cholesterol 42 Tryptase Procalcitonin TSH Free T4 Urine Color Urine Clarity Urine pH Ur Specific [place] Urine Protein Urine Ketones Urine Blood Urine Nitrite Urine Bilirubin Urine Urobilinogen Ur Leukocyte Esterase Urine Glucose COVID-19 Source SARS-CoV-2 (PCR) 05/22/21 05/22/21 05/22/21 06:30 03:25 00:27 WBC RBC Hgb Hct MCV MCH MCHC RDW Plt Count MPV Immature Gran % Neutrophils % Lymphocytes % Monocytes % Eosinophils % Basophils % Nucleated RBC % Absolute Neutrophils Absolute Lymphocytes Absolute Monocytes Absolute Eosinophils Absolute Basophils VBG Lactate Sodium Potassium Chloride Carbon Dioxide Anion Gap BUN Creatinine Estimated GFR/1.73 m2 Glucose Calcium Magnesium Total Bilirubin AST ALT Alkaline Phosphatase Troponin I < 0.05 C-Reactive Protein Total Protein Albumin Triglycerides Total Cholesterol LDL Cholesterol, Calc HDL Cholesterol Tryptase Pending Procalcitonin TSH Free T4 Urine Color Yellow Urine Clarity Clear Urine pH 6.5 Ur Specific [place] 1.025 Urine Protein Negative Urine Ketones 15 H Urine Blood Negative Urine Nitrite Negative Urine Bilirubin Small H Urine Urobilinogen 2.0 H Ur Leukocyte Esterase Negative Urine Glucose Negative COVID-19 Source SARS-CoV-2 (PCR) 05/21/21 05/21/21 05/21/21 23:33 23:33 23:33 WBC 20.83 H RBC 4.94 Hgb 14.7 Hct 46.0 MCV 93.1 MCH 29.8 MCHC 32.0 RDW 13.7 Plt Count 336 MPV 9.5 Immature Gran % 0.5 Neutrophils % 80.9 Lymphocytes % 10.7 Monocytes % 7.2 Eosinophils % 0.5 Basophils % 0.2 Nucleated RBC % 0 Absolute Neutrophils 16.85 H Absolute Lymphocytes 2.23 Absolute Monocytes 1.50 H Absolute Eosinophils 0.10 Absolute Basophils 0.04 VBG Lactate 2.2 H* Sodium Potassium Chloride Carbon Dioxide Anion Gap BUN Creatinine Estimated GFR/1.73 m2 Glucose Calcium Magnesium Total Bilirubin AST ALT Alkaline Phosphatase Troponin I C-Reactive Protein Total Protein Albumin Triglycerides Total Cholesterol LDL Cholesterol, Calc HDL Cholesterol Tryptase Procalcitonin 0.1 TSH Free T4 Urine Color Urine Clarity Urine pH Ur Specific [place] Urine Protein Urine Ketones Urine Blood Urine Nitrite Urine Bilirubin Urine Urobilinogen Ur Leukocyte Esterase Urine Glucose COVID-19 Source Nasal/Nares SARS-CoV-2 (PCR) Negative 05/21/21 23:33 WBC RBC Hgb Hct MCV MCH MCHC RDW Plt Count MPV Immature Gran % Neutrophils % Lymphocytes % Monocytes % Eosinophils % Basophils % Nucleated RBC % Absolute Neutrophils Absolute Lymphocytes Absolute Monocytes Absolute Eosinophils Absolute Basophils VBG Lactate Sodium 137 Potassium 3.8 Chloride 102 Carbon Dioxide 24.5 Anion Gap 10.5 BUN 16 Creatinine 1.1 Estimated GFR/1.73 m2 >= 60.00 Glucose 160 H Calcium 8.7 Magnesium 2.1 Total Bilirubin 0.4 AST 12 L ALT 17 Alkaline Phosphatase 84 Troponin I < 0.05 C-Reactive Protein 2.31 H Total Protein 7.0 Albumin 3.7 Triglycerides Total Cholesterol LDL Cholesterol, Calc HDL Cholesterol Tryptase Procalcitonin TSH 4.14 H Free T4 0.80 Urine Color Urine Clarity Urine pH Ur Specific [place] Urine Protein Urine Ketones Urine Blood Urine Nitrite Urine Bilirubin Urine Urobilinogen Ur Leukocyte Esterase Urine Glucose COVID-19 Source SARS-CoV-2 (PCR) [facility] Active Problem List (Updated 05/22/21 @ 03:19 by Rylee Worrell MD) Leucocytosis (Acute) Dehydration (Acute) DVT prophylaxis (Acute) Reaction to Pneumovax immunization (Acute) Syncope (Acute) Carpal tunnel syndrome of left wrist (Acute) Cervical radiculopathy (Acute) Tendinitis of long head of biceps brachii of left shoulder (Acute) Acromioclavicular joint separation (Acute) Skin tag (Acute) Discharge planning issues (Acute) Medical History (Updated 05/22/21 @ 03:19 by Rylee Worrell MD) Acute alcoholic intoxication in alcoholism (blood level 0.08-0.29) Cataract Fracture of five ribs of left side HTN (hypertension) Pneumothorax on left Trigger finger, right ring finger Injected: 10/13/2019 Vasovagal syncope Surgical History (Updated 05/22/21 @ 03:15 by Rylee Worrell MD) H/O elbow surgery right tennis elbow surgery 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 DOMINGUEZ Left Knee/ Dr. Dominguez S/P bilateral inguinal hernia repair Dr. Schultz (1985) Family History (Updated 05/22/21 @ 03:13 by Rylee Worrell MD) Father Hypertension Stroke Social History (Updated 05/22/21 @ 03:16 by Rylee Worrell MD) Smoking/Tobacco Use Status: Current every day Tobacco Type: cigarettes Smoking packs per day: 1 Smoking cigarettes per day: 20.0 Counseling given: provider counseling and patient declined Smoking risk assessment performed?: Yes Alcohol Intake: current Alcohol Intake frequency: 0-2 drinks per day Drug use: Never Current gender identity: male Do you feel safe in your relationship?: Yes
== END 2021-05-22 12:06 | disposition home or self-care (01) ==
LOC: ER 05-22 01:51 → MS 05-22 02:31
PROVIDERS: Admitting Provider Internal Medicine; Emergency Provider Emergency Medicine; PCP Family Medicine; Visit Provider Internal Medicine
DX: T50.A95A Adverse effect of other bacterial vaccines, initial encounter (principal); R55 Syncope and collapse; M54.12 Radiculopathy, cervical region; F10.20 Alcohol dependence, uncomplicated; I10 Essential (primary) hypertension; E86.0 Dehydration; E87.1 Hypo-osmolality and hyponatremia; D72.828 Other elevated white blood cell count; F17.210 Nicotine dependence, cigarettes, uncomplicated; Z20.822 Contact with and (suspected) exposure to COVID-19
CPT/HCPCS: 36415; 80048; 80053; 80061; 83520; 84145; 87635; 93005; 96360; 96361; 99285; J1650; 71045; 81003; 83605; 83735; 84439; 84443; 84484; 85025; 86140; 93010; 99236; G0378; J2930

== ENCOUNTER 2021-05-22 11:51 | Outpatient (RCR) | payer OTHER, SELFPAY ==
--- NOTE | 2021-05-22 11:45 | HOLTER_ITS ---
APPROVED REPORT Conclusion This is a 48-hour Holter monitor ordered for syncope Rhythm throughout was sinus with an average heart rate of 79. Minimum was 57, maximum 126 There were rare ventricular ectopic beats There were rare atrial premature beats, very rare atrial pairs. A total of 11 self-limited atrial runs occurred. These were generally brief, 4-5 beats. There was o ne 24 beat run. All of these were asymptomatic There is no high-grade AV block, no pauses greater than 3 seconds There were no apparent patient symptoms
== END 2021-05-27 23:59 | disposition home or self-care (01) ==
LOC: RT 11:51
PROVIDERS: PCP Family Medicine; Visit Provider Family Medicine
DX: R55 Syncope and collapse (principal)
CPT/HCPCS: 93225; 93226

== ENCOUNTER 2021-05-28 02:24 | Outpatient (CLI) | payer OTHER, SELFPAY ==
[2021-05-28 12:15] LABS: Source Nasal/Nares
[2021-05-28 14:35] LABS: COVID-19 PCR Negative (Negative)
== END 2021-05-28 02:25 | disposition home or self-care (01) ==
LOC: LBO 02:24
PROVIDERS: PCP Family Medicine; Visit Provider Ophthalmology
DX: Z20.822 Contact with and (suspected) exposure to COVID-19 (principal); Z01.818 Encounter for other preprocedural examination
CPT/HCPCS: 87635

== ENCOUNTER 2021-05-30 08:09 | Day surgery (SDC) | payer OTHER, SELFPAY ==
[2021-05-30 08:34] VITALS: BP 108/69; PULSE 72; RESP 16; TEMP 36.3; O2SAT 97
[2021-05-30] MEDS: Tropicam./Phenyleph. (1/2.5%) 5 ML BTL OD ×3 (08:45→08:55)
--- NOTE | 2021-05-30 09:11 | ANES.PREOP_ITS ---
General Info Date of Service Date Performed: 05/30/21 Height: 5 ft 11 in Weight: 82.8 kg Body Mass Index (BMI): 25.4 Surgical Procedure: Operation Date: 05/30/21 10:40 Proposed Procedures Side Surgeon p Cataract Extraction with IOL Implant Right Sarabjit Moya MD Meds Allergies and Home Medications Allergies Allergy/AdvReac Type Severity Reaction Status Date / Time coconut oil Allergy Unknown Unverified 05/28/21 08:51 pineapple Allergy Unknown Unverified 05/28/21 08:51 pneumococcal vaccine AdvReac Severe Other (See Unverified 05/28/21 08:51 [From Pneumovax-23] Comment) hydrocodone bitartrate AdvReac Intermediate bradycardia Unverified 05/28/21 08:51 [From Vicodin] oxycodone AdvReac Intermediate Bradycardia, Unverified 05/28/21 08:51 Hypotension Home Medication Medication Instructions Recorded acetaminophen 650 mg PO PRN PRN 02/15/18 ibuprofen 200 - 400 mg PO PRN PRN 02/17/18 lisinopril 5 mg tablet 5 mg PO HS 10/13/19 Current Visit Medications: Current Medications Generic Name Dose Route Start Last Admin Trade Name Freq PRN Reason Stop Dose Admin Acetaminophen 1,000 mg 05/30/21 06:00 Acetaminophen 500 Mg Tab PO Q4H PRN PRN Miscellaneous Medication 0 ml 05/30/21 06:00 Prednisolone 1%, Moxifloxacin 0.5%, Nepafenac 0.1% 5ml Btl OD DIRECTED [facility] Miscellaneous Medication 0 ml 05/30/21 06:00 05/30/21 08:55 Tropicam./Phenyleph. (1/2.5%) 5 Ml Btl OD 1 drp DIRECTED HERMILO Administration Tetracaine HCl 0 ml 05/30/21 06:00 Tetracaine 0.5% 4 Ml Btl OD DIRECTED [facility] PFSH Active Problems Active Problems: Problem Status Onset Code Syncope R55 Traumatic pneumothorax S27.0XXA Discharge planning issues Z02.9 Skin tag L91.8 Acromioclavicular joint separation S43.109A Tendinitis of long head of biceps brachii of left shoulder M75.22 Cervical radiculopathy M54.12 Carpal tunnel syndrome of left wrist G56.02 Syncope R55 Reaction to Pneumovax immunization T50.A95A DVT prophylaxis Z29.9 Dehydration E86.0 Leucocytosis D72.829 Medical History Active Problem List Discharge planning issues (Acute) Skin tag (Acute) Acromioclavicular joint separation (Acute) Tendinitis of long head of biceps brachii of left shoulder (Acute) Cervical radiculopathy (Acute) Carpal tunnel syndrome of left wrist (Acute) Syncope (Acute) Reaction to Pneumovax immunization (Acute) DVT prophylaxis (Acute) Dehydration (Acute) Leucocytosis (Acute) Medical History Acute alcoholic intoxication in alcoholism (blood level 0.08-0.29) Cataract Fracture of five ribs of left side HTN (hypertension) Pneumothorax on left Trigger finger, right ring finger Injected: 10/13/2019 Vasovagal syncope Pt. stated this was a reaction to the pneumovax Medical History Comments:: Pt. 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 DOMINGUEZ Left Knee/ Dr. Dominguez S/P bilateral inguinal hernia repair Dr. Schultz (1985) Tobacco Smoking/Tobacco Use Status: Current every day Tobacco Type: cigarettes Smoking packs per day: 1 Smoking cigarettes per day: 20.0 Counseling given: provider counseling and patient declined Alcohol Alcohol Intake: current Alcohol intake frequency: 0-2 drinks per day Substance Use Substance use: Never Substance use type: does not use Vital Signs and Lab Results Vital Signs Most Recent Vital Signs in EMR: Most Recent Vital Signs Temp Pulse Resp BP Pulse Ox 36.3 C L 72 16 108/69 97 05/30/21 08:34 05/30/21 08:34 05/30/21 08:34 05/30/21 08:34 05/30/21 08:34 Lab Results Blood Type / Crossmatch: No Data to Display Complete Blood Count: White Blood Count 20.00 10^3/uL (4.4-10.8) H 05/22/21 07:10 05/22/21 Red Blood Count 4.72 10^6/uL (4.36-5.78) 05/22/21 07:10 05/22/21 Hemoglobin 14.1 g/dL (13.5-17.5) 05/22/21 07:10 05/22/21 Hematocrit 43.8 % (40.0-50.0) 05/22/21 07:10 05/22/21 Platelet Count 231 10^3/uL (130-400) 05/22/21 07:10 05/22/21 Venous Blood Lactate 1.5 mmol/L (0.6-1.4) H 05/22/21 07:10 05/22/21 Complete Metabolic Panel: Sodium Level 138 mmol/L (136-145) 05/22/21 07:10 05/22/21 Potassium Level 4.2 mmol/L (3.5-5.1) 05/22/21 07:10 05/22/21 Chloride Level 104 mmol/L (98-107) 05/22/21 07:10 05/22/21 Carbon Dioxide Level 21.9 mmol/L (21.0-32.0) 05/22/21 07:10 05/22/21 Blood Urea Nitrogen 11 mg/dL (7-18) 05/22/21 07:10 05/22/21 Creatinine 0.8 mg/dL (0.70-1.30) 05/22/21 07:10 05/22/21 Estimated GFR/1.73 m2 >= 60.00 (mL/min/1.73m2) 05/22/21 07:10 05/22/21 Magnesium Level 2.1 mg/dL (1.8-2.4) 05/22/21 07:10 05/22/21 Calcium Level 8.6 mg/dL (8.5-10.1) 05/22/21 07:10 05/22/21 Albumin 3.7 g/dL (3.4-5.0) 05/21/21 23:33 05/21/21 Glucose Level 179 mg/dL (74-106) H 05/22/21 07:10 05/22/21 C-Reactive Protein 6.49 mg/dL (0.0-0.3) H 05/22/21 07:10 05/22/21 Liver Function Panel: Alanine Aminotransferase (ALT/SGPT) 17 U/L (16-63) 05/21/21 23:33 05/21/21 Aspartate Amino Transf (AST/SGOT) 12 U/L (15-37) L 05/21/21 23:33 05/21/21 Coagulation Panel: No Data to Display Cardiac Panel: Troponin I < 0.05 ng/mL (<0.06) 05/22/21 07:10 05/22/21 Arterial Blood Gas: No Data to Display Venous Blood Gas: No Data to Display Pancreas Panel: No Data to Display Thyroid Panel: Thyroid Stimulating Hormone (TSH) 4.14 uIU/mL (0.36-3.74) H 05/21/21 23:33 05/21/21 Infectious Disease: Coronavirus (COVID-19)(PCR) Negative (Negative) 05/28/21 09:17 05/28/21 Coronavirus 2019 Source Nasal/Nares 05/28/21 09:17 05/28/21 Blood Cultures: No Data to Display Toxicology Panel: No Data to Display Imaging and Studies Imaging and Studies EKG Summary: DATE/TIME OF SERVICE: 05/21/210 Exam: Resting ECG Reason for Exam: left sided weakness Patient Location: E HR:94 bpm ECG Measurements Heart Rate 94 AXIS UT 144 P 38 QRSd 79 QRS 10 QT 340 T59 QTc 425 Conclusion Sinus rhythm...normal P axis, V-rate 60- 99 Normal [place] No Acute ST Changes Anesthesia Assessment and Plan Anesthesia History Personal History: No History of Anesthesia Complications Family History: No Family History of Anesthesia Complications Exercise Tolerance Exercise Tolerance: Metabolic Equivalents>4 Pertinent Negatives Pertinent Negatives: No Symptoms of GERD Cardiac & Pulmonary Exam Cardiac Exam: Normal S1/S2 Heart Sounds Pulmonary Exam: Clear Bilateral Breath Sounds Implantable Cardiac Device Does patient have a Pacemaker or an ICD?: No Airway Exam Known Difficult Airway: No Mallampati Class: 1 Mouth Opening: Normal (> 3cm) Thyromental Distance: Greater than 3 cm Neck Range of Motion: Full ROM Neck Circumference: Normal Teeth Condition: Removable Dentures/Plates Upper and Removable Dentures/Plates Lower ASA Classification ASA Score: ASA 2 Emergency Case?: No NPO Status NPO Status: NPO Clears >2 hours, Solids >8 hours Anesthesia Plan Resuscitation Status: Full Code Anesthesia Technique: MAC Anesthesia Airway Planned: Natural Airway Monitors Used: Standard Monitors
--- NOTE | 2021-05-30 09:43 | W.PM.DSUDISC ---
Discharge Plan Disposition Patient Disposition: HOME Condition: Good Discharge Details Attending Provider: Sarabjit Moya Primary Care Provider: Jama Melgar [place] Meds and New Rx's Prescriptions: No Action lisinopril 5 mg tablet 5 mg PO HS RF: 0 acetaminophen 325 MG tablet 650 mg PO PRN PRNRF: 0 ibuprofen 200 MG capsule 200 - 400 mg PO PRN PRNRF: 0 Discharge Instructions Stand Alone Forms: Post-op Topical Cataract, [place] (DSU) Discharge Orders Discharge Orders: Discharge Order (Routine); Ordered 05/30/21 Ordered By: Sarabjit Moya DS: Diagnosis Discharge Diagnosis (1) Cortical cataract of right eye: Status: Resolved (2) Posterior subcapsular age-related cataract, right eye: Status: Resolved
--- NOTE | 2021-05-30 09:46 | ANES.PREOP_ITS ---
General Info Date of Service Date Performed: 05/30/21 Height: 5 ft 11 in Weight: 82.8 kg Body Mass Index (BMI): 25.4 Surgical Procedure: Operation Date: 05/30/21 10:40 Proposed Procedures Side Surgeon p Cataract Extraction with IOL Implant Right Sarabjit Moya MD Meds Allergies and Home Medications Allergies Allergy/AdvReac Type Severity Reaction Status Date / Time coconut oil Allergy Unknown Unverified 05/28/21 08:51 pineapple Allergy Unknown Unverified 05/28/21 08:51 pneumococcal vaccine AdvReac Severe Other (See Unverified 05/28/21 08:51 [From Pneumovax-23] Comment) hydrocodone bitartrate AdvReac Intermediate bradycardia Unverified 05/28/21 08:51 [From Vicodin] oxycodone AdvReac Intermediate Bradycardia, Unverified 05/28/21 08:51 Hypotension Home Medication Medication Instructions Recorded acetaminophen 650 mg PO PRN PRN 02/15/18 ibuprofen 200 - 400 mg PO PRN PRN 02/17/18 lisinopril 5 mg tablet 5 mg PO HS 10/13/19 Current Visit Medications: Current Medications Generic Name Dose Route Start Last Admin Trade Name Freq PRN Reason Stop Dose Admin Acetaminophen 1,000 mg 05/30/21 06:00 Acetaminophen 500 Mg Tab PO Q4H PRN PRN Miscellaneous Medication 0 ml 05/30/21 06:00 Prednisolone 1%, Moxifloxacin 0.5%, Nepafenac 0.1% 5ml Btl OD DIRECTED [facility] Miscellaneous Medication 0 ml 05/30/21 06:00 05/30/21 08:55 Tropicam./Phenyleph. (1/2.5%) 5 Ml Btl OD 1 drp DIRECTED HERMILO Administration Tetracaine HCl 0 ml 05/30/21 06:00 Tetracaine 0.5% 4 Ml Btl OD DIRECTED [facility] PFSH Active Problems Active Problems: Problem Status Onset Code Syncope R55 Traumatic pneumothorax S27.0XXA Discharge planning issues Z02.9 Skin tag L91.8 Acromioclavicular joint separation S43.109A Tendinitis of long head of biceps brachii of left shoulder M75.22 Cervical radiculopathy M54.12 Carpal tunnel syndrome of left wrist G56.02 Syncope R55 Reaction to Pneumovax immunization T50.A95A DVT prophylaxis Z29.9 Dehydration E86.0 Leucocytosis D72.829 Medical History Active Problem List Discharge planning issues (Acute) Skin tag (Acute) Acromioclavicular joint separation (Acute) Tendinitis of long head of biceps brachii of left shoulder (Acute) Cervical radiculopathy (Acute) Carpal tunnel syndrome of left wrist (Acute) Syncope (Acute) Reaction to Pneumovax immunization (Acute) DVT prophylaxis (Acute) Dehydration (Acute) Leucocytosis (Acute) Medical History Acute alcoholic intoxication in alcoholism (blood level 0.08-0.29) Cataract Fracture of five ribs of left side HTN (hypertension) Pneumothorax on left Trigger finger, right ring finger Injected: 10/13/2019 Vasovagal syncope Pt. stated this was a reaction to the pneumovax Medical History Comments:: Pt. 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 DOMINGUEZ Left Knee/ Dr. Dominguez S/P bilateral inguinal hernia repair Dr. Schultz (1985) Tobacco Smoking/Tobacco Use Status: Current every day Tobacco Type: cigarettes Smoking packs per day: 1 Smoking cigarettes per day: 20.0 Counseling given: provider counseling and patient declined Alcohol Alcohol Intake: current Alcohol intake frequency: 0-2 drinks per day Substance Use Substance use: Never Substance use type: does not use Vital Signs and Lab Results Vital Signs Most Recent Vital Signs in EMR: Most Recent Vital Signs Temp Pulse Resp BP Pulse Ox 36.3 C L 72 16 108/69 97 05/30/21 08:34 05/30/21 08:34 05/30/21 08:34 05/30/21 08:34 05/30/21 08:34 Lab Results Blood Type / Crossmatch: No Data to Display Complete Blood Count: White Blood Count 20.00 10^3/uL (4.4-10.8) H 05/22/21 07:10 05/22/21 Red Blood Count 4.72 10^6/uL (4.36-5.78) 05/22/21 07:10 05/22/21 Hemoglobin 14.1 g/dL (13.5-17.5) 05/22/21 07:10 05/22/21 Hematocrit 43.8 % (40.0-50.0) 05/22/21 07:10 05/22/21 Platelet Count 231 10^3/uL (130-400) 05/22/21 07:10 05/22/21 Venous Blood Lactate 1.5 mmol/L (0.6-1.4) H 05/22/21 07:10 05/22/21 Complete Metabolic Panel: Sodium Level 138 mmol/L (136-145) 05/22/21 07:10 05/22/21 Potassium Level 4.2 mmol/L (3.5-5.1) 05/22/21 07:10 05/22/21 Chloride Level 104 mmol/L (98-107) 05/22/21 07:10 05/22/21 Carbon Dioxide Level 21.9 mmol/L (21.0-32.0) 05/22/21 07:10 05/22/21 Blood Urea Nitrogen 11 mg/dL (7-18) 05/22/21 07:10 05/22/21 Creatinine 0.8 mg/dL (0.70-1.30) 05/22/21 07:10 05/22/21 Estimated GFR/1.73 m2 >= 60.00 (mL/min/1.73m2) 05/22/21 07:10 05/22/21 Magnesium Level 2.1 mg/dL (1.8-2.4) 05/22/21 07:10 05/22/21 Calcium Level 8.6 mg/dL (8.5-10.1) 05/22/21 07:10 05/22/21 Albumin 3.7 g/dL (3.4-5.0) 05/21/21 23:33 05/21/21 Glucose Level 179 mg/dL (74-106) H 05/22/21 07:10 05/22/21 C-Reactive Protein 6.49 mg/dL (0.0-0.3) H 05/22/21 07:10 05/22/21 Liver Function Panel: Alanine Aminotransferase (ALT/SGPT) 17 U/L (16-63) 05/21/21 23:33 05/21/21 Aspartate Amino Transf (AST/SGOT) 12 U/L (15-37) L 05/21/21 23:33 05/21/21 Coagulation Panel: No Data to Display Cardiac Panel: Troponin I < 0.05 ng/mL (<0.06) 05/22/21 07:10 05/22/21 Arterial Blood Gas: No Data to Display Venous Blood Gas: No Data to Display Pancreas Panel: No Data to Display Thyroid Panel: Thyroid Stimulating Hormone (TSH) 4.14 uIU/mL (0.36-3.74) H 05/21/21 23:33 05/21/21 Infectious Disease: Coronavirus (COVID-19)(PCR) Negative (Negative) 05/28/21 09:17 05/28/21 Coronavirus 2019 Source Nasal/Nares 05/28/21 09:17 05/28/21 Blood Cultures: No Data to Display Toxicology Panel: No Data to Display Imaging and Studies Imaging and Studies EKG Summary: DATE/TIME OF SERVICE: 05/21/216 Exam: Resting ECG Reason for Exam: left sided weakness Patient Location: E HR:94 bpm ECG Measurements Heart Rate 94 AXIS OR 144 P 38 QRSd 79 QRS 10 QT 340 T59 QTc 425 Conclusion Sinus rhythm...normal P axis, V-rate 60- 99 Normal [place] No Acute ST Changes Anesthesia Assessment and Plan Anesthesia History Personal History: No History of Anesthesia Complications Family History: No Family History of Anesthesia Complications Exercise Tolerance Exercise Tolerance: Metabolic Equivalents>4 Cardiac & Pulmonary Exam Cardiac Exam: Normal S1/S2 Heart Sounds Pulmonary Exam: Clear Bilateral Breath Sounds Implantable Cardiac Device Does patient have a Pacemaker or an ICD?: No Airway Exam Known Difficult Airway: No Mallampati Class: 1 Mouth Opening: Normal (> 3cm) Thyromental Distance: Greater than 3 cm Neck Range of Motion: Full ROM Neck Circumference: Normal Teeth Condition: Generalized Poor Dentition ASA Classification ASA Score: ASA 2 Emergency Case?: No NPO Status NPO Status: NPO Clears >2 hours, Solids >8 hours Anesthesia Plan Resuscitation Status: Full Code Anesthesia Technique: General Anesthesia Airway Planned: Natural Airway Monitors Used: Standard Monitors
[2021-05-30 09:49] VITALS: BMI 25.4
[2021-05-30] MEDS: Balanced Salt Soln.-PLUS 500 ML BAG (10:08)
[2021-05-30] MEDS: Tetracaine 0.5% 4 ML BTL OD (10:08)
[2021-05-30] MEDS: Lidocaine 2% Jelly 6 ML SYR (10:09)
[2021-05-30] MEDS: Povidone-Iodine Ophth 30 ML BTL (10:11)
[2021-05-30] MEDS: Trypan Blue 0.06% 0.5 ML SYR (10:12)
[2021-05-30] MEDS: Duovisc Viscoelastic System EACH 1 EACH (10:12)
[2021-05-30 10:32] VITALS: BP 120/65; PULSE 66; RESP 18; TEMP 36.8; O2SAT 98
--- NOTE | 2021-05-30 10:36 | W.PM.OP ---
Date of service: 05/30/21 Time of Service: 10:36 Operative Note Operative Note DATE OF PROCEDURE: 05/30/21 PRE-OP DIAGNOSIS: Dense cortical/posterior subcapsular cataract right eye Poor red reflex secondary to cataract, right eye POST-OP DIAGNOSIS: same PROCEDURE: Cataract extraction using phacoemulsification with intraocular lens implantation, right eye, using capsular staining with Vision Blue SURGEON: Sarabjit Moay ANESTHESIA TYPE: Local By Surgeon and MAC Refer to Anesthesia Record PATHOLOGY: none sent COMPLICATIONS: None Patient was transported to: same day Patient's condition: stable Implants: [employer] Dread / [employer] Tecnis [id number] Indications: Progressive visual loss due to cataract, right eye Procedure Description: CATARACT SURGERY OPERATIVE REPORT PREOPERATIVE DIAGNOSIS: 1. Dense cortical/posterior subcapsular cataract, right eye 2. Poor red reflex secondary to #1 POSTOPERATIVE DIAGNOSIS: Same OPERATION: 1. Cataract extraction using phacoemulsification with posterior chamber intraocular lens implant, right eye. 2. Capsular staining with Vision Blue IOL: IOL Primer Expeditor And Drier/Model: Dread & Dread / JAVID Tecnis [id number] IOL Power: +21.0 diopters IOL Serial Number: [id number] Optic Diameter: 6.0mm Haptic/Overall Diameter: 13.0mm PHACO INFO: Dominic [employer]ur[employer] Vision System with OZil and Active [employer]uidics Cumulative Dispersed Energy (CDE): 16.35 seconds SURGEON: Sarabjit Moya MD, SANDI ANESTHESIA: Monitored Anesthesia Care (MAC), with local sub-tenon's anesthetic infiltration COMPLICATIONS: None SPECIMENS: None INDICATIONS FOR PROCEDURE: The patient is a 70-year-old gentleman with history of diminished visual acuity in his right eye secondary to a dense cortical and posterior subcapsular cataract with essentially counting fingers vision. The option of cataract surgery was offered to the patient and he wished to proceed. PROCEDURE: The correct surgical eye was identified and marked as the right eye and the pupil was dilated in the preoperative area using mydriatics and cycloplegics. The dilated pupil size was 7.0 mm. He elected to proceed without oral sedation.. The patient was brought to the operating room where cardiopulmonary monitoring was instituted and surgical time-out was performed, confirming the correct operative eye and IOL power. Topical anesthesia was administered and ophthalmic povidone-iodine 5% was instilled into the conjunctival fornices. Lidocaine gel was applied to the cornea and the mauro-ocular area was prepped with Betadine 10% solution and draped in the usual sterile fashion for intraocular surgery, including an aperture drape. A Tegaderm transparent film dressing was cut in half and used to cover the lashes and lid margins. Care was taken to sequester the lashes and lid margins under the Tegaderm dressing. A lid speculum was placed between the lids of the operative eye and the Julito-Óscar operating microscope was maneuvered into position. Donn scissors were then used to make a conjunctival buttonhole approximately 6mm posterior to the limbus in the inferonasal quadrant. Blunt dissection was carried out to expose bare sclera, and a blunt-tipped sub-tenon?s anesthesia cannula was introduced and passed posteriorly along the globe where non-preserved plain lidocaine was injected into posterior sub-Tenon?s space. A sideport knife was used to make a paracentesis port inferotemporally. Intraocular phenylephrine/lidocaine was injected into the anterior chamber. Air was injected into the anterior chamber, followed by Vision Blue, which was painted over the anterior capsule and then irrigated out with BSS. The anterior chamber was filled with viscoelastic. A 2.4mm keratome knife was used to create a half-thickness groove at the limbus and then to construct a three-plane near-clear corneal tunnel extending 2.0mm into clear cornea superiortemporally. A flap was raised on the anterior capsule and capsulorhexis forceps were used to complete a continuous curvilinear capsulorhexis of 4.8 mm. Balanced salt solution was then used to perform cortical cleaving hydrodissection and nuclear hydrodelineation until the lens could be freely rotated within the capsular bag. The lens nucleus was then disassembled and removed within the capsular bag and iris plane using phacoemulsification. Residual cortical material was removed using the I/A handpiece. The posterior capsule was carefully polished to remove as much residual lens epithelial cells as safely possible. The capsular bag was then inflated and the anterior chamber deepened with viscoelastic. The lens implant described above was inserted into the capsular bag using the JAVID [place] Injector. A Kuglen hook was used to dial the IOL into position. Residual viscoelastic was then removed first from posterior to the IOL, then from the anterior chamber using the I/A handpiece. The lens implant was noted to center nicely within the capsular bag. The incisions were stromally hydrated, and the anterior chamber was reformed using BSS. Then 0.5cc of moxifloxacin 1.0mg/ml were injected into the capsular bag and anterior chamber. The incisions were checked with a Weck spear and found to be secure. Several drops of ophthalmic povidone-iodine 5% were then applied to the eye followed by two drops of Imprimis combination prednisolone/moxifloxacin/nepafenac solution. The drapes were removed and a clear plastic protective eye shield was placed over the eye. The patient was then returned to Same Day Surgery in stable condition.
--- NOTE | 2021-05-30 10:52 | W.ANESPOSTOP ---
Postoperative Evaluation Date, Time and Location Date Performed: 05/30/21 Time Performed: 10:35 Patient Location: Day Surgery Unit Vital Signs Most Recent Imported Vital Signs: Most Recent Vital Signs Temp Pulse Resp BP Pulse Ox 36.8 C 66 18 120/65 98 05/30/21 10:32 05/30/21 10:32 05/30/21 10:32 05/30/21 10:32 05/30/21 10:32 Pain Score Most Recent Pain Score: Most Recent Pain Score Pain Level 0 05/30/21 10:32 Assessment Mental Status: Awake (Alert & Oriented to Patient Baseline) Airway and Respiratory Function: Patent airway with normal (patient baseline) respiratory exam Cardiovascular Function: Hemodynamically Stable Hydration Status: Adequately Hydrated Nausea & Vomiting: No Nausea or Vomiting Pain: Pt. Denies Any Pain Peripheral Nerve Block: Patient did not receive a nerve block
[2021-06-02 06:54] VITALS: BMI 25.4
== END 2021-05-30 10:52 | disposition home or self-care (01) ==
PROVIDERS: PCP Family Medicine; Visit Provider Ophthalmology
PROC: (CPT 66984; principal; 2021-05-30 10:30)
DX: H25.041 Posterior subcapsular polar age-related cataract, right eye (principal)
CPT/HCPCS: 66984; V2632

== ENCOUNTER 2021-07-11 03:46 | Outpatient (CLI) | payer OTHER, SELFPAY ==
[2021-07-11 19:17] LABS: COVID-19 RT-PCR UVMMC Result Negative (Negative)
== END 2021-07-11 03:47 | disposition home or self-care (01) ==
LOC: LBO 03:48
PROVIDERS: Family Medicine; PCP Family Medicine; Visit Provider Ophthalmology
DX: Z20.822 Contact with and (suspected) exposure to COVID-19 (principal); Z01.818 Encounter for other preprocedural examination
CPT/HCPCS: U0003

== ENCOUNTER 2021-07-14 07:35 | Day surgery (SDC) | payer OTHER, SELFPAY ==
--- NOTE | 2021-07-14 07:07 | HPE_ITS ---
Assessment and Plan Assessment and plan (1) Cortical cataract of left eye: Status: Acute Assessment and plan: Assessment: Visually significant cataract of the left eye. Plan: Cataract extraction with lens implantation of the left eye (2) Nuclear sclerotic cataract of left eye: Status: Acute Assessment and plan: Assessment: Visually significant cataract of the left eye. Plan: Cataract extraction with lens implantation of the left eye (3) Posterior subcapsular age-related cataract of left eye: Status: Acute Assessment and plan: Assessment: Visually significant cataract of the left eye. Plan: Cataract extraction with lens implantation of the left eye History of Present Illness History of Present Illness Chief Complaint: Progressive decreased vision, left eye Narrative: The patient is a 70-year-old male with history of progressive decreased vision in both eyes, right eye worse than left. He noted significant difficulty with decreased vision at both distance and near with halos around lights at night. On examination he was noted to have a significant cataract of the right eye with counting fingers vision in a more moderate cortical and posterior subcapsular cataract of the left eye. He has already undergone cataract surgery in the right eyes on 05/30/2021. He now presents for cataract s urgery of the left eye. Review of Systems All systems reviewed & are unremarkable except as noted in HPI and below PFSH All Active Problems Posterior subcapsular age-related cataract of left eye (Acute) Nuclear sclerotic cataract of left eye (Acute) Cortical cataract of left eye (Acute) Abdominal aortic aneurysm (Acute) Alcohol use (Acute) Screening for colon cancer (Acute) Medical History Acromioclavicular joint separation Carpal tunnel syndrome of left wrist Cataract Cervical radiculopathy Discharge planning issues Encounter for screening for other viral diseases Fracture of five ribs of left side History of TIA (transient ischemic attack) HTN (hypertension) Leucocytosis Reaction to Pneumovax immunization Skin tag Syncope Tendinitis of long head of biceps brachii of left shoulder Trigger finger, right ring finger Injected: 10/13/2019 Tubular adenoma of colon Vasovagal syncope Pt. 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 DOMINGUEZ Left Knee/ Dr. Dominguez S/P bilateral inguinal hernia repair Dr. Schultz (1985) Family History Father Hypertension Stroke Social History Smoking/Tobacco Use Status: Current every day Tobacco Type: cigarettes Smoking packs per day: 1 Smoking cigarettes per day: 20.0 Counseling given: provider counseling and patient declined Smoking risk assessment performed?: Yes Alcohol Intake: current Alcohol Intake frequency: 0-2 drinks per day Drug use: Never Substance use type: does not use Current gender identity: male Do you feel safe at home: Yes Do you feel safe in your relationship?: Yes Meds Allergies and Home Medications Allergies Allergy/AdvReac Type Severity Reaction Status Date / Time coconut oil Allergy Unknown Unverified 07/14/21 07:58 pineapple Allergy Unknown Unverified 07/14/21 07:58 pneumococcal vaccine AdvReac Severe Other (See Unverified 07/14/21 07:58 [From Pneumovax-23] Comment) hydrocodone bitartrate AdvReac Intermediate bradycardia Unverified 07/14/21 07:58 [From Vicodin] oxycodone AdvReac Intermediate Bradycardia, Unverified 07/14/21 07:58 Hypotension Home Medications Medication Instructions Recorded Confirmed Type acetaminophen 650 mg PO PRN PRN 02/15/18 07/10/21 History ibuprofen 200 - 400 mg PO PRN PRN 02/17/18 07/10/21 History lisinopril 5 mg tablet 5 mg PO HS 10/13/19 07/14/21 History Exam Eyes Alignment and Position: alignment normal Periorbital: periorbital findings normal Eyelids: eyelids normal Conjunctivae: conjunctivae normal Sclera: sclerae normal Cornea: corneas normal Pupils: PERRL Other: On examination uncorrected distance visual acuity is 20/20 in the right eye, 20/40 in the left eye. Intraocular pressure is 16 right eye, 19 left eye. Slit-lamp examination reveals a well-positioned PCIOL OD with clear posterior capsule. The left eye has moderate nuclear cortical and posterior subcapsular cataract. Disc cupping is 0.3 OU. The right optic disc, vessels, and macula are normal. In the left eye, the disc and vessels are normal, but there is a mild epiretinal membrane in the central macula. Resp Auscultation: clear to auscultation bilaterally Cardio Rate: regular rate Rhythm: regular rhythm
[2021-07-14] MEDS: Tropicam./Phenyleph. (1/2.5%) 5 ML BTL OS ×3 (08:01→08:15)
[2021-07-14 08:02] VITALS: BP 110/76; PULSE 92; RESP 16; TEMP 36.6; O2SAT 97
--- NOTE | 2021-07-14 08:41 | ANES.PREOP_ITS ---
General Info Date of Service Date Performed: 07/14/21 Height: 5 ft 11 in Weight: 81.2 kg Body Mass Index (BMI): 25.0 Surgical Procedure: Operation Date: 07/14/21 09:40 Proposed Procedures Side Surgeon p Cataract Extraction with IOL Implant Left Sarabjit Moya MD Meds Allergies and Home Medications Allergies Allergy/AdvReac Type Severity Reaction Status Date / Time coconut oil Allergy Unknown Unverified 07/14/21 07:58 pineapple Allergy Unknown Unverified 07/14/21 07:58 pneumococcal vaccine AdvReac Severe Other (See Unverified 07/14/21 07:58 [From Pneumovax-23] Comment) hydrocodone bitartrate AdvReac Intermediate bradycardia Unverified 07/14/21 07:58 [From Vicodin] oxycodone AdvReac Intermediate Bradycardia, Unverified 07/14/21 07:58 Hypotension Home Medication Medication Instructions Recorded acetaminophen 650 mg PO PRN PRN 02/15/18 ibuprofen 200 - 400 mg PO PRN PRN 02/17/18 lisinopril 5 mg tablet 5 mg PO HS 10/13/19 Current Visit Medications: Current Medications Generic Name Dose Route Start Last Admin Trade Name Freq PRN Reason Stop Dose Admin Acetaminophen 1,000 mg 07/14/21 06:00 Acetaminophen 500 Mg Tab PO Q4H PRN PRN Miscellaneous Medication 0 ml 07/14/21 06:00 Prednisolone 1%, Moxifloxacin 0.5%, Nepafenac 0.1% 5ml Btl OS DIRECTED HERMILO Miscellaneous Medication 0 ml 07/14/21 06:00 07/14/21 08:15 Tropicam./Phenyleph. 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 eye H25.042 Nuclear sclerotic cataract of left eye H25.12 Cortical cataract of left eye H26.9 Abdominal aortic aneurysm I71.4 Alcohol use Z72.89 Screening for colon cancer Z12.11 Medical History Medical History Acromioclavicular joint separation Carpal tunnel syndrome of left wrist Cataract Cervical radiculopathy Discharge planning issues Encounter for screening for other viral diseases Fracture of five ribs of left side History of TIA (transient ischemic attack) HTN (hypertension) Leucocytosis Reaction to Pneumovax immunization Skin tag Syncope Tendinitis of long head of biceps brachii of left shoulder Trigger finger, right ring finger Injected: 10/13/2019 Tubular adenoma of colon Vasovagal syncope Pt. 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 DOMINGUEZ Left Knee/ Dr. Dominguez S/P bilateral inguinal hernia repair Dr. Schultz (1985) Tobacco Smoking/Tobacco Use Status: Current every day Tobacco Type: cigarettes Smoking packs per day: 1 Smoking cigarettes per day: 20.0 Counseling given: provider counseling and patient declined Alcohol Alcohol Intake: current Alcohol intake frequency: 0-2 drinks per day Substance Use Substance use: Never Substance use type: does not use Vital Signs and Lab Results Vital Signs Most Recent Vital Signs in EMR: Most Recent Vital Signs Temp Pulse Resp BP Pulse Ox 36.6 C 92 H 16 110/76 97 07/14/21 08:02 07/14/21 08:02 07/14/21 08:02 07/14/21 08:02 07/14/21 08:02 Lab Results Blood Type / Crossmatch: No Data to Display Complete Blood Count: No Data to Display Complete Metabolic Panel: No Data to Display Liver Function Panel: No Data to Display Coagulation Panel: No Data to Display Cardiac Panel: No Data to Display Arterial Blood Gas: No Data to Display Venous Blood Gas: No Data to Display Pancreas Panel: No Data to Display Thyroid Panel: No Data to Display Infectious Disease: Coronavirus (COVID-19)(PCR) Negative (Negative) 07/11/21 08:51 07/11/21 Blood Cultures: No Data to Display Toxicology Panel: No Data to Display Imaging and Studies Imaging and Studies Study information below may be from another EMR and interpreted by another provider. Please see original notes in EMR for more complete details. EKG Summary: DATE/TIME OF SERVICE: 05/21/21 9178 Exam: Resting ECG Reason for Exam: left sided weakness Patient Location: E HR:94 bpm ECG Measurements Heart Rate [address] 144 P 38 QRSd 79 QRS 10 QT 340 T59 QTc 425 Conclusion Sinus rhythm...normal P axis, V-rate 60- 99 Normal [place] No Acute ST Changes Anesthesia Assessment and Plan Anesthesia History Personal History: No History of Anesthesia Complications Family History: No Family History of Anesthesia Complications Exercise Tolerance Exercise Tolerance: Metabolic Equivalents>4 Cardiac & Pulmonary Exam Cardiac Exam: Normal S1/S2 Heart Sounds Pulmonary Exam: Clear Bilateral Breath Sounds Implantable Cardiac Device Does patient have a Pacemaker or an ICD?: No Airway Exam Known Difficult Airway: No Mallampati Class: 1 Mouth Opening: Normal (> 3cm) Thyromental Distance: Greater than 3 cm Neck Range of Motion: Full ROM Neck Circumference: Normal Teeth Condition: Generalized Poor Dentition ASA Classification ASA Score: ASA 2 Emergency Case?: No NPO Status NPO Status: NPO Clears >2 hours, Solids >8 hours Anesthesia Plan Resuscitation Status: Full Code Anesthesia Technique: MAC Anesthesia Airway Planned: Natural Airway Monitors Used: Standard Monitors
[2021-07-14 08:42] VITALS: BMI 25.0
[2021-07-14] MEDS: Triamcinolone 40 MG/ML VIAL (09:12)
[2021-07-14] MEDS: Tetracaine 0.5% 4 ML BTL OS (09:13)
[2021-07-14] MEDS: Trypan Blue 0.06% 0.5 ML SYR (09:13)
[2021-07-14] MEDS: Balanced Salt Soln.-PLUS 500 ML BAG (09:14)
[2021-07-14] MEDS: Lidocaine 2% Jelly 6 ML SYR (09:16)
[2021-07-14] MEDS: Duovisc Viscoelastic System EACH 1 EACH (09:16)
[2021-07-14] MEDS: Povidone-Iodine Ophth 30 ML BTL (09:17)
[2021-07-14 09:35] VITALS: BP 100/65; PULSE 81; RESP 16; TEMP 36.7; O2SAT 97
--- NOTE | 2021-07-14 09:35 | ROE_ITS ---
Date of service: 07/14/21 Time of Service: 09:35 Operative Note Operative Note DATE OF PROCEDURE: 07/14/21 PRE-OP DIAGNOSIS: Nuclear/cortical/posterior subcapsular cataract, left eye Poor red reflex, left eye secondary to cataract POST-OP DIAGNOSIS: same PROCEDURE: Cataract extraction using phacoemulsification with intraocular lens implant, left eye, using capsular staining with Vision Blue SURGEON: Sarabjit Moya ANESTHESIA TYPE: Local By Surgeon and MAC Refer to Anesthesia Record COMPLICATIONS: None Patient was transported to: same day Patient's condition: stable Implants: [employer] / [employer] Tecnis [id number] Indications: Progressive decreased vision due to cataract, left eye, with poor red reflex Procedure Description: CATARACT SURGERY OPERATIVE REPORT PREOPERATIVE DIAGNOSIS: 1. Nuclear/cortical/posterior subcapsular cataract, left eye 2. Poor red reflex secondary to #1 POSTOPERATIVE DIAGNOSIS: Same OPERATION: 1. Cataract extraction using phacoemulsification with posterior chamber intraocular lens implant, left eye. 2. Capsular staining with Vision Blue IOL: IOL Project Management Manager/Model: Dread [employer] Dread / JAVID Tecnis [id number] IOL Power: + 21.5 diopters IOL Serial Number: [id number] Optic Diameter: 6.0 mm Haptic/Overall Diameter: 13.0 mm PHACO INFO: Dominic [employer].MEurion Vision System with OZil and Active [employer]uidics Cumulative Dispersed Energy (CDE): 5.63 seconds SURGEON: Sarabjit Moya MD, SANDI ANESTHESIA: Monitored A [facility] (MAC), with local sub-tenon's anesthetic infiltration COMPLICATIONS: None SPECIMENS: None INDICATIONS FOR PROCEDURE: The patient is a 70-year-old gentleman with history of diminished visual acuity in both eyes secondary to the development of bilateral nuclear/cortical/posterior subcapsular cataract. The option of cataract surgery was offered to the patient and he wished to proceed. He has already undergone cataract surgery in the right eye and is doing well postoperatively. He now presents for cataract surgery in the left eye. PROCEDURE: The correct surgical eye was identified and marked as the left eye and the pupil was dilated in the preoperative area using mydriatics and cycloplegics. The dilated pupil size was 6.5 mm. The patient was brought to the operating room where cardiopulmonary monitoring was instituted and surgical time-out was performed, confirming the correct operative eye and IOL power. Topical anesthesia was administered and ophthalmic povidone-iodine 5% was instilled into the conjunctival fornices. Lidocaine gel was applied to the cornea and the mauro-ocular area was prepped with Betadine 10% solution and dr aped in the usual sterile fashion for intraocular surgery, including an aperture drape. A Tegaderm transparent film dressing was cut in half and used to cover the lashes and lid margins. Care was taken to sequester the lashes and lid margins under the Tegaderm dressing. A lid speculum was placed between the lids of the operative eye and the Julito-Óscar operating microscope was maneuvered into position. Donn scissors were then used to make a conjunctival buttonhole approximately 6mm posterior to the limbus in the inferonasal quadrant. Blunt dissection was carried out to expose bare sclera, and a blunt-tipped sub-tenon?s anesthesia cannula was introduced and passed posteriorly along the globe where non- preserved plain lidocaine was injected into posterior sub-Tenon?s space. A sideport knife was used to make a paracentesis port superiorly/superiortemporally. Intraocular phenylephrine/lidocaine was injected int the anterior chamber.. Air was then injected into the anterior chamber, followed by Vision Blue, which was painted over the anterior capsule and then irrigated out using BSS. The anterior chamber was filled with viscoelastic. A 2.4mm keratome knife was used to create a half-thickness groove at the limbus and then to construct a three-plane near-clear corneal tunnel extending 2.0mm into clear cornea at the 3:00 position. A flap was raised on the anterior capsule and capsulorhexis forceps were used to complete a continuous curvilinear capsulorhexis of 5.0 mm. Balanced salt solution was then used to perform cortical cleaving hydrodissection and nuclear hydrodelineation until the lens could be freely rotated within the capsular bag. The lens nucleus was then disassembled and removed within the capsular bag and iris plane using phacoemulsification. Residual cortical material was removed using the 45-degree angled silicone I/A tip with 0.3mm port. The posterior capsule was carefully polished to remove as much residual lens epithelial cells as safely possible. The capsular bag was then inflated and the anterior chamber deepened with viscoelastic. The lens implant described above was inserted into the capsular bag using the JAVID [place] Injector. A Kuglen hook was used to dial the IOL into position. Residual viscoelastic was then removed first from posterior to the IOL, then from the anterior chamber using the I/A handpiece. The lens implant was noted to center nicely within the capsular bag. The incisions were stromally hydrated, and the anterior chamber was reformed using BSS. Then 0.5cc of moxifloxacin 1.0mg/ml were injected into the capsular bag and anterior chamber. the incisions were checked with a Weck spear and found to be secure. At the conclusion of the procedure, Kenalog 20 mg in 0.5 cc were injected into posterior sub-tenon's space using the sub-tenon's anesthesia injection cannula. Several drops of ophthalmic povidone-iodine 5% were then applied to the eye followed by two drops of Imprimis combination prednisolone /moxifloxacin/nepafenac solution. The drapes were removed and a clear plastic protective eye shield was placed over the eye. The patient was then returned to Same Day Surgery in stable condition.
--- NOTE | 2021-07-14 09:36 | W.ANESPOSTOP ---
Postoperative Evaluation Date, Time and Location Date Performed: 07/14/21 Time Performed: 09:37 Patient Location: Day Surgery Unit Vital Signs Most Recent Imported Vital Signs: Most Recent Vital Signs Temp Pulse Resp BP Pulse Ox 36.6 C 92 H 16 110/76 97 07/14/21 08:02 07/14/21 08:02 07/14/21 08:02 07/14/21 08:02 07/14/21 08:02 Most Recent Manually Entered Vital Signs: Adult Blood Pressure: 100/65 Heart Rate: 81 Respirations: 16 Oxygen Saturation (%): 97 Temperature (C): 36.7 C Pain Score (0-10 Scale): 0 Pain Score Most Recent Pain Score: Most Recent Pain Score Pain Level 0 07/14/21 08:02 Assessment Mental Status: Awake (Alert & Oriented to Patient Baseline) Airway and Respiratory Function: Patent airway with normal (patient baseline) respiratory exam Cardiovascular Function: Hemodynamically Stable Hydration Status: Adequately Hydrated Nausea & Vomiting: No Nausea or Vomiting Pain: Pt. Denies Any Pain Peripheral Nerve Block: Patient did not receive a nerve block
[2021-07-14 09:37] VITALS: BP 100/65; PULSE 81; RESP 16; TEMPC 36.7; O2SAT 97
== END 2021-07-14 09:54 | disposition home or self-care (01) ==
LOC: SUR 07:35
PROVIDERS: PCP Family Medicine; Visit Provider Ophthalmology
PROC: (CPT 66984; principal; 2021-07-14 09:30)
DX: H25.042 Posterior subcapsular polar age-related cataract, left eye (principal); I10 Essential (primary) hypertension; Z86.73 Personal history of transient ischemic attack (TIA), and cerebral infarction without residual deficits
CPT/HCPCS: 66984; V2632

== ENCOUNTER 2022-03-16 09:52 | Day surgery (SDC) | payer OTHER, SELFPAY ==
--- NOTE | 2022-03-16 07:07 | W.COLOREPORT ---
Colonoscopy Report Date of procedure: 03/16/22 Pre-op diagnosis general: Hx of polyps, screening Post-op diagnosis procedure note: other (diverticulosis and polyps) Procedure: Colonoscopy with polyepctomy Surgeon: Vivi Noland Anesthesia Type: General:No Airway Estimated blood loss (mL): 3 Pathology: other (sigmoid polyp and rectal polyp) Complications: None Disposition: same day Indications: The patient? is a pleasant? 71-year-old male who is here to discuss another screening colonoscopy. ? He had a tubular adenoma back in 2007.? He denies any changes in bowel habits, melena, hematochezia, unintentional weight loss or family history of colon cancer.? The procedure and risks were discussed.? The prep was reviewed in detail.? Risks, benefits and complications have been reviewed. Complications include but are not limited to bleeding, pain, perforation, missed small lesion/polyp, sore throat, aspiration and adverse reaction to the medications. Questions were entertained and answered to their satisfaction and they wished to proceed. No guarantees were given or implied. Prep: Miralax/Dulcolax Procedure Start Time: 11:52 Procedure End Time: 12:13 Retraction Time: 8 minutes Findings: 2 small polyps mild sigmoid diverticulosis Procedure Description: After informed consent was obtained the patient was taken to the procedure room and placed in a left decubitous position. Monitors were applied and a time out was done. The patients name, date of , procedure, allergies to medications and metal in their body was reviewed. The patient was then sedated. Once sedated and comfortable a rectal exam was done. External exam was normal. Internal exam revealed a normal sphincter tone and no palpable masses. The prostate felt smooth and slightly enlarged. The scope was then introduced and retro-flexed. No internal hemorrhoids, polyps or masses were identified on retro-flexion. The scope was then advanced to the cecum without difficulty. The ileocecal vlave and appendiceal orifice were identified. The prep was adequate. The scope was then slowly retracted over 8 minutes back into the rectum. Polyps were removed with cold forceps in the sigmoid colon x1 and rectum x1. There was mild sigmoid diverticulosis noted. The scope was removed and the patient was woken up and taken back to Same day surgery in stable condition. The patient tolerated the procedure well and there were no immediate complications.
--- NOTE | 2022-03-16 07:07 | W.PM.DSUDISC ---
Discharge Plan Disposition Patient Disposition: HOME Condition: Good Discharge Details Reason For Visit: colonoscopy Attending Provider: Vivi Noland Primary Care Provider: Jama Melgar Home Meds and New Rx's Prescriptions: Continued lisinopril 5 mg tablet 5 mg PO HS acetaminophen 325 MG tablet 650 mg PO PRN PRN ibuprofen 200 MG capsule 200 - 400 mg PO PRN PRN Discharge Instructions Instructions: Diverticulosis (DC), Colorectal Polyps (DC) Additional Instructions: Findings: polyps, diverticulosis Follow up: 5 years Please call if you develop: fevers >101.5 Nausea or Vomiting Abdominal pain that is not transient Rectal bleeding that is more then a tbsp A hard abdomen and inability to pass gas DAY SURGERY UNIT POST ENDOSCOPY INSTRUCTIONS Instructions for everyone who is given Anesthesia: For your safety, please do the following for the next 24 Hours: a. Do not drive or operate dangerous equipment b. Do not drink alcohol beverages or use any recreational drugs for the first 24 hours or while taking pain medications. The medications in your body may have a reaction that can be dangerous. c. Do not make any important decisions or sign any important papers 1. Generally there are no restrictions on your activity after a day or so has gone by, but you may feel a bit fatigued for a few days. 2. After you arrive home you may have a light meal and return to a normal diet as you can tolerate it without feeling sick to your stomach. 3. After surgery, you may feel pain or discomfort. This should be only transient, but if it persists please contact your doctor. 4. If there are any questions regarding the findings of your procedure, please feel free to contact your doctor. 6. If you are unable to contact your doctor with a problem, contact the hospital at [phone]. 7. Continue all your regular medications unless directed otherwise. I understand the above instructions and have no questions. Signature of Patient or Responsible Adult Escort Date/Time Name of Responsible Adult Escort Signature of Nurse Date/Time Activity:: Activity as Tolerated Diet:: high fiber diet Discharge Orders Discharge Orders: Discharge Order (Routine); Ordered 03/16/22 Ordered By: Vivi Noland
[2022-03-16 10:20] VITALS: BP 101/67; PULSE 71; RESP 16; TEMP 36.2; O2SAT 98
[2022-03-16] MEDS: Lactated Ringers 1,000 ML 80 ML IV (10:41)
--- NOTE | 2022-03-16 11:13 | ANES.PREOP_ITS ---
General Info Date of Service Date Performed: 03/16/22 Height: 5 ft 11 in Weight: 72.3 kg Body Mass Index (BMI): 22.2 Surgical Procedure: Operation Date: 03/16/22 11:50 Proposed Procedure Side Surgeon sarah Noland MD Meds Allergies and Home Medications Allergies Allergy/AdvReac Type Severity Reaction Status Date / Time coconut oil Allergy Unknown Itching Unverified 03/16/22 10:18 pineapple Allergy Unknown Itching Unverified 03/16/22 10:18 per pt report pneumococcal vaccine AdvReac Severe Vasovagal Unverified 03/16/22 10:18 [From Pneumovax-23] syncope-requiring hosp.admission hydrocodone AdvReac Intermediate Bradycardia, Unverified 03/16/22 10:18 hypotension Home Medication Medication Instructions Recorded acetaminophen 325 mg tablet 650 mg PO PRN PRN 02/15/18 ibuprofen 200 mg capsule 200 - 400 mg PO PRN PRN 02/17/18 lisinopril 5 mg tablet 5 mg PO HS 10/13/19 Current Visit Medications: Current Medications Generic Name Dose Route Start Last Admin Trade Name Freq PRN Reason Stop Dose Admin Hyoscyamine Sulfate 0.125 mg 03/16/22 07:08 Hyoscyamine 0.125 Mg Sl/Oral/Chew SL DIRECTED PRN Ringer's Solution 1,000 mls @ 80 mls/hr 03/16/22 06:00 03/16/22 10:41 IV 04/12/22 23:59 80 mls/hr INFUSION HERMILO Administration IV Miscellaneous Supplies 1 each 03/16/22 06:00 Iv Access IV 04/12/22 23:59 DIRECTED HERMILO Ondansetron HCl 4 mg 03/16/22 07:08 Ondansetron 4 Mg/2 Ml Vial IVP Q4H PRN PRN Nausea / Vomiting Sodium Chloride 0 ml 03/16/22 06:00 Normal Saline Flush 10 Ml Syr IV 04/12/22 23:59 PRN PRN Sodium Chloride 0 ml 03/16/22 06:00 Normal Saline 10 Ml Vial IJ 04/12/22 23:59 DIRECTED PRN Sterile Water 0 ml 03/16/22 06:00 Water,Injection,Sterile 10 Ml Vial IJ 04/12/22 23:59 DIRECTED PRN PFSH Active Problems Active Problems: Problem Status Onset Code Screening for colon cancer Z12.11 Alcohol use Z72.89 Abdominal aortic aneurysm I71.4 Cortical cataract of left eye H26.9 Nuclear sclerotic cataract of left eye H25.12 Posterior subcapsular age-related cataract of left eye H25.042 Medical History Medical History Acromioclavicular joint separation Carpal tunnel syndrome of left wrist Cataract Cervical radiculopathy Discharge planning issues Encounter for screening for other viral diseases Fracture of five ribs of left side History of TIA (transient ischemic attack) 2000 HTN (hypertension) Leucocytosis Reaction to Pneumovax immunization Skin tag Syncope Tendinitis of long head of biceps brachii of left shoulder Trigger finger, right ring finger Injected: 10/13/2019 Tubular adenoma of colon Vasovagal syncope Pt. 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 DOMINGUEZ Left Knee/ Dr. Dominguez S/P bilateral inguinal hernia repair Dr. Schultz (1985) Tobacco Smoking/Tobacco Use Status: Current every day Tobacco Type: cigarettes Smoking packs per day: 1 Smoking cigarettes per day: 20.0 Counseling given: provider counseling and patient declined Alcohol Alcohol Intake: current Alcohol intake frequency: 0-2 drinks per day Substance Use Substance use: Never Substance use type: does not use Vital Signs and Lab Results Vital Signs Most Recent Vital Signs in EMR: Most Recent Vital Signs Temp Pulse Resp BP Pulse Ox 36.2 C L 71 16 101/67 98 03/16/22 10:20 03/16/22 10:20 03/16/22 10:20 03/16/22 10:20 03/16/22 10:20 Lab Results Blood Type / Crossmatch: No Data to Display Complete Blood Count: No Data to Display Complete Metabolic Panel: No Data to Display Liver Function Panel: No Data to Display Coagulation Panel: No Data to Display Cardiac Panel: No Data to Display Arterial Blood Gas: No Data to Display Venous Blood Gas: No Data to Display Pancreas Panel: No Data to Display Thyroid Panel: No Data to Display Infectious Disease: No Data to Display Blood Cultures: No Data to Display Toxicology Panel: No Data to Display Imaging and Studies Imaging and Studies Study information below may be from another EMR and interpreted by another sarah bella. Please see original notes in EMR for more complete details. EKG Summary: DATE/TIME OF SERVICE: 05/21/21 8548 Exam: Resting ECG Reason for Exam: left sided weakness Patient Location: E HR:94 bpm ECG Measurements Heart Rate 94 AXIS LA 144 P 38 QRSd 79 QRS 10 QT 340 T59 QTc 425 Conclusion Sinus rhythm...normal P axis, V-rate 60- 99 Normal [place] No Acute ST Changes Anesthesia Assessment and Plan Anesthesia History Personal History: No History of Anesthesia Complications Family History: No Family History of Anesthesia Complications Exercise Tolerance Exercise Tolerance: Metabolic Equivalents>4 Pertinent Negatives Pertinent Negatives: No Symptoms of GERD Cardiac & Pulmonary Exam Cardiac Exam: Normal S1/S2 Heart Sounds Pulmonary Exam: Clear Bilateral Breath Sounds Implantable Cardiac Device Does patient have a Pacemaker or an ICD?: No Airway Exam Known Difficult Airway: No Mallampati Class: 1 Mouth Opening: Normal (> 3cm) Thyromental Distance: Greater than 3 cm Neck Range of Motion: Full ROM Neck Circumference: Normal Teeth Condition: Generalized Poor Dentition ASA Classification ASA Score: ASA 2 Emergency Case?: No NPO Status NPO Status: NPO Clears >2 hours, Solids >8 hours Anesthesia Plan Resuscitation Status: Full Code Anesthesia Technique: General Anesthesia Airway Planned: Natural Airway Monitors Used: Standard Monitors
--- NOTE | 2022-03-16 12:08 | BOWEL_PTH ---
PATIENT: Edilson Charles LOC: [facility] U#:[id number] AGE/SX: 71/M ROOM: RE03/16/[address]: Vivi Noland MD : 1950 BED: DIS: 03/16/2022 SPEC #: [id number] RECD: 03/16/22 13:27 STATUS: WENDY REQ #: [id number] NIELS: 03/16/22 12:[address]: Vivi Noland DEPT: Surgical Specimen RECD BY: Rita Danielle ENTERED: 03/16/22 13:28 SP TYPE: Bowel OTHR DR: Jama Melgar Tissues: 1 - BIOPSY BOWEL 2 - BIOPSY BOWEL Procedures: GROSS AND MICRO LEVEL 4 Comments: [id number]
[2022-03-16 12:22] VITALS: BP 95/66; PULSE 63; RESP 16; TEMP 36.1; O2SAT 94
[2022-03-16 12:37] VITALS: BMI 22.2
--- NOTE | 2022-03-16 12:37 | W.ANESPOSTOP ---
Postoperative Evaluation Date, Time and Location Date Performed: 03/16/22 Time Performed: 12:37 Patient Location: Day Surgery Unit Vital Signs Most Recent Imported Vital Signs: Most Recent Vital Signs Temp Pulse Resp BP Pulse Ox 36.1 C L 63 16 95/66 L 94 03/16/22 12:22 03/16/22 12:22 03/16/22 12:22 03/16/22 12:22 03/16/22 12:22 Pain Score Most Recent Pain Score: Most Recent Pain Score Pain Level 0 03/16/22 12:22 Assessment Mental Status: Awake (Alert & Oriented to Patient Baseline) Airway and Respiratory Function: Patent airway with normal (patient baseline) respiratory exam Cardiovascular Function: Hemodynamically Stable Hydration Status: Adequately Hydrated Nausea & Vomiting: No Nausea or Vomiting Pain: Pt. Denies Any Pain Peripheral Nerve Block: Patient did not receive a nerve block
[2022-03-16 12:46] VITALS: BP 102/66; PULSE 57; RESP 16; TEMP 36.1; O2SAT 98
== END 2022-03-16 13:25 | disposition home or self-care (01) ==
PROVIDERS: PCP Family Medicine; Visit Provider Surgery
PROC: 0DJD8ZZ Inspection of Lower Intestinal Tract, Via Natural or Artificial Opening Endoscopic (ICD-10-PCS; CPT 45378; principal; 2022-03-16 11:45)
DX: Z12.11 Encounter for screening for malignant neoplasm of colon (principal); K63.5 Polyp of colon; Z86.010 Personal history of colon polyps; K62.1 Rectal polyp; K57.30 Diverticulosis of large intestine without perforation or abscess without bleeding
CPT/HCPCS: 45380; 88305

== ENCOUNTER 2022-03-29 10:08 | Emergency (ER) | payer OTHER, SELFPAY ==
[2022-03-29 10:45] VITALS: BP 101/54; PULSE 75; RESP 18; TEMP 36.7; O2SAT 96
--- NOTE | 2022-03-29 11:00 | DI.RAD_ITS ---
Exam(s) XR PORTABLE CHEST AP EXAM: XR PORTABLE CHEST AP CLINICAL HISTORY: cough. TECHNIQUE: 2D digital imaging was performed. COMPARISON: CR,XR XR PORTABLE CHEST AP from 05/21/2021 FINDINGS: Single AP portable view. Heart size is upper normal. The mediastinum is not widened. Lungs are clear. No infiltrates nor obvious pleural effusions. IMPRESSION: No acute pulmonary findings on this single AP portable view of the chest. DATA REPOSITORY: RADIATION DOSE DELIVERED:
--- NOTE | 2022-03-29 11:05 | ED.GENADUL_ITS ---
Discharge Plan Disposition Patient Disposition: HOME Condition: Stable Discharge Details Clinical Impression: Cough, Wheezing Primary Care Provider: Jama Melgar ED Provider: Reji Collado Home Meds and New Rx's Prescriptions: New prednisone 20 mg tablet 60 mg PO DAILY 4 Days Qty: 12 0RF doxycycline hyclate 100 mg tablet 100 mg PO BID Qty: 14 0RF Continued lisinopril 5 mg tablet 5 mg PO HS acetaminophen 325 MG tablet 650 mg PO PRN PRN ibuprofen 200 MG capsule 200 - 400 mg PO PRN PRN Discharge Instructions Instructions: Wheezing (ED) Additional Instructions: your xray did not show a pneumonia follow up with your primary care provider within 1 week especially if symptoms continue if you feel more ill or have worsening difficulty breathing return to the emergency department Medical Decision Making 71 yo male with hx of htn, smoker, who comes in with chief complaint of cough for 2 weeks. HE states he had a fever last wednesday but none since, denies chest pain or pressure, no significant dyspnea, no travel. HE is speaking infull sentences on exam in no distress. He does have wheezing bilaterally on exam and intermittent dry cough, no leg swelling, no jvd, no murmurs. Suspect uri vs covid vs pneumonia and possible underlying copd. no hypoxia or tachycardia or evidence of dvt on exam so doubt pe and no chest pressure or pain to suggest acs. Will treat with prednisone and duoneb, obtain cxr and cbc cmp and reassess. labs unremarkable other than mild elevation in lfts, has no ruq tenderness. He has mild apical wheezing otherwise clear lungs, stable vitals. Will treat for possible copd exacerbation with doxy and provide inhaler and spacer. Advised to f/u with pcp and return precautions given Differential Diagnosis Differential Diagnosis: copd, uri, pneumonia Imaging Data Radiologic Study: Attestation: I personally reviewed and interpreted this imaging study as follows: Imaging: X-Ray Radiologist's impression: no acute findings Lab Data Lab results reviewed: Yes I reviewed the patient's lab results. HPI General Mode of arrival: ambulatory . Date/Time Provider Initiated Documentation: 03/29/22 10:49 . Limitations to Documentation: no limitations . Information obtained by: patient . History of Present Illness 71 year old M presents to the emergency department with the chief complaint of cough, described as moderate, Patient started experiencing this week(s) (2) and it has been constant. No relieving factors improve symptom(s), No exacerbating factors reported . Related Data Home Medications Medication Instructions Recorded Confirmed acetaminophen 325 mg tablet 650 mg PO PRN PRN 02/15/18 03/29/22 ibuprofen 200 mg capsule 200 - 400 mg PO PRN PRN 02/17/18 03/29/22 lisinopril 5 mg tablet 5 mg PO HS 10/13/19 03/29/22 doxycycline hyclate 100 mg tablet 100 mg PO BID #14 tabs 03/29/22 prednisone 20 mg tablet 60 mg PO DAILY 4 days #12 tabs 03/29/22 Previous Rx's Medication Instructions Recorded doxycycline hyclate 100 mg tablet 100 mg PO BID #14 tabs 03/29/22 prednisone 20 mg tablet 60 mg PO DAILY 4 days #12 tabs 03/29/22 Allergies Allergy/AdvReac Type Severity Reaction Status Date / Time coconut oil Allergy Unknown Itching Unverified 03/29/22 10:48 pineapple Allergy Unknown Itching Unverified 03/29/22 10:48 per pt report pneumococcal vaccine AdvReac Severe Vasovagal Unverified 03/29/22 10:48 [From Pneumovax-23] syncope-requiring hosp.admission hydrocodone AdvReac Intermediate Bradycardia, Unverified 03/29/22 10:48 hypotension General Stated Complaint: GenMedical DEEPTI: 3 Review of Systems All systems reviewed & are unremarkable except as noted in HPI and below Constitutional Constitutional: Denies chills, Denies fever(s) and Denies weakness Cardiovascular Cardiovascular: Denies chest pain and Denies dyspnea Respiratory Respiratory: Denies dyspnea Gastrointestinal Gastrointestinal: Denies abdominal pain, Denies nausea and Denies vomiting Neurologic Neurologic: Denies weakness PFSH All Active Problems (Updated 03/29/22 @ 13:24 by Reji Collado MD) Screening for colon cancer (Acute) Alcohol use (Acute) Abdominal aortic aneurysm (Acute) Cortical cataract of left eye (Acute) Nuclear sclerotic cataract of left eye (Acute) Posterior subcapsular age-related cataract of left eye (Acute) Cough (Acute) Wheezing (Acute) Medical History (Updated 03/29/22 @ 13:24 by Reji Collado MD) Acromioclavicular joint separation Carpal tunnel syndrome of left wrist Cataract Cervical radiculopathy Discharge planning issues Encounter for screening for other viral diseases Fracture of five ribs of left side History of TIA (transient ischemic attack) 2000 HTN (hypertension) Leucocytosis Reaction to Pneumovax immunization Skin tag Syncope Tendinitis of long head of biceps brachii of left shoulder Trigger finger, right ring finger Injected: 10/13/2019 Tubular adenoma of colon Vasovagal syncope Pt. 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 DOMINGUEZ Left Knee/ Dr. Dominguez S/P bilateral inguinal hernia repair Dr. Schultz (1985) Family History Father Hypertension Stroke Social History Smoking/Tobacco Use Status: Current every day Tobacco Type: cigarettes Smoking packs per day: 1 Smoking cigarettes per day: 20.0 Counseling given: provider counseling and patient declined Smoking risk assessment performed?: Yes Alcohol Intake: current Alcohol Intake frequency: 0-2 drinks per day Drug use: Never Substance use type: does not use Current gender identity: male Do you feel safe at home: Yes Do you feel safe in your relationship?: Yes Exam Const General: no acute distress Orientation: alert HENMT Head: normal to inspection Ears: external ears normal General nose exam: external nose normal Mouth: moist mucous membranes Eyes General: appearance normal, both eyes and all related structures Neck Neck: normal visual inspection Resp Effort & Inspection: normal respiratory effort and able to speak in complete sentences Cardio Rate: regular rate Skin General skin exam: no rashes or lesions noted Neuro General: patient alert and patient oriented x3 Extrem General: normal to inspection Psych Mental Status: mental status grossly normal Course Vital Signs Vital signs: Vital Signs Temperature 36.7 C 03/29/22 10:45 Pulse 75 03/29/22 10:45 Respiratory Rate 18 03/29/22 10:45 Blood Pressure 101/54 L 03/29/22 10:45 Pulse Oximetry 96 03/29/22 10:45 Temperature 36.7 C 03/29/22 10:45 Temperature Source Oral 10/02/22 10:45 Pulse 75 03/29/22 10:45 Respiratory Rate 18 03/29/22 10:45 Blood Pressure 101/54 L 03/29/22 10:45 Blood Pressure Position Sitting 03/29/22 10:45 Pulse Oximetry 96 03/29/22 10:45 Oxygen Delivery Method Room Air 03/29/22 10:45 Oxygen Flow Rate 0 03/29/22 10:45 Pain Level 6 03/29/22 10:45
[2022-03-29] MEDS: predniSONE 20 MG TAB 60 MG PO (11:14)
[2022-03-29] MEDS: Albuterol/Ipratropium 3 ML UPD VIAL UPD (11:14)
[2022-03-29 11:43] LABS: Source Nasal/Nares
[2022-03-29 11:45] LABS: Abs Immature Grans 0.04 10^3/uL (0.0-0.06); Absolute Basophil Count 0.03 10^3/uL (0.0-0.2); Absolute Eosinophil Count 0.08 10^3/uL (0.0-0.7); Absolute Lymphocyte Count 0.92 10^3/uL (1.2-3.4); Absolute Monocyte Count 0.89 10^3/uL (0.1-0.8); Absolute Neutrophil Count 8.57 10^3/uL (1.2-6.7); Basophils % 0.3; Eosinophils % 0.8; HCT 42.9 % (40.0-50.0); HGB 14.4 g/dL (13.5-17.5); Immature Grans % 0.4; Lymphocytes % 8.7; MCH 30.4 pg (27.0-33.0); MCHC 33.6 % (32.0-36.0); MCV 91 fL (80-95); MPV 9.4 fL (8.0-11.0); Monocytes % 8.5; Neutrophils % 81.3; Platelet Count 233 10^3/uL (130-400); RBC 4.73 10^6/uL (4.36-5.78); RDW 14.6 % (11.8-14.1); RDW-SD 49.1 fL; WBC 10.53 10^3/uL (4.4-10.8)
[2022-03-29 12:01] LABS: ALT 128 U/L (16-63); AST 74 U/L (15-37); Albumin 3.4 g/dL (3.4-5.0); Alkaline Phosphatase 156 U/L (46-116); Anion Gap 8.5 mmol/L (3-11); BUN 13 mg/dL (7-18); Bilirubin, Total 1.1 mg/dL (0.2-1.0); CO2 27.5 mmol/L (21.0-32.0); CREATININE 0.8 mg/dL (0.70-1.30); Chloride 100 mmol/L (98-107); Estimated GFR 94.62 (mL/min/1.73m2); Glucose 93 mg/dL (74-106); Potassium 3.8 mmol/L (3.5-5.1); Sodium 136 mmol/L (136-145)
--- NOTE | 2022-03-29 12:03 | DI.VRAD_ITS ---
PROCEDURE INFORMATION: Exam: XR Chest Exam date and time: 03/29/2022 11:27 AM Age: 71 years old Clinical indication: Other: Cough TECHNIQUE: Imaging protocol: Radiologic exam of the chest. Views: 1 view. COMPARISON: CT CHEST LUNG CANCER SCREEN 09/19/2021 10:28 AM FINDINGS: Lungs: No consolidation. Right lung mildly hyperinflated. Pleural spaces: Unremarkable. No pleural effusion. No pneumothorax. Heart/Mediastinum: Cardiac silhouette at the upper limits of normal in size. Bones/joints: Unremarkable. IMPRESSION: No acute pulmonary abnormality. Dictated and Authenticated by: Carlo Schaefer MD. Ordering:ÓSCAR Mendoza MD
[2022-03-29 12:15] LABS: COVID-19 PCR Negative (Negative)
[2022-03-29 13:26] VITALS: BP 106/60; PULSE 88; RESP 18; TEMP 36.5; O2SAT 95
[2022-03-29] MEDS: Inhaler, Assist Device 1 EACH MC (13:30)
[2022-03-29] MEDS: Albuterol HFA 8 GM 60 PUFF INH IH (13:30)
[2022-03-29] MEDS: Doxycycline Hyclate 100 MG CAP PO (13:30)
== END 2022-03-29 13:31 | disposition home or self-care (01) ==
PROVIDERS: Emergency Provider Emergency Medicine; PCP Family Medicine
DX: R05.9 Cough, unspecified (principal); R06.2 Wheezing; R79.89 Other specified abnormal findings of blood chemistry; I10 Essential (primary) hypertension; F17.210 Nicotine dependence, cigarettes, uncomplicated; Z86.73 Personal history of transient ischemic attack (TIA), and cerebral infarction without residual deficits; Z20.822 Contact with and (suspected) exposure to COVID-19
CPT/HCPCS: 36415; 80053; 87635; 94640; 99284; 71045; 85025; J7512; J7620

== ENCOUNTER 2022-05-05 16:20 | Outpatient (REF) | payer OTHER, SELFPAY ==
[2022-05-05 18:48] LABS: Hemoglobin A1C 6.1 % (<5.7)
[2022-05-05 18:49] LABS: ALT 15 U/L (16-63); AST 16 U/L (15-37); Albumin 3.7 g/dL (3.4-5.0); Alkaline Phosphatase 91 U/L (46-116); Bilirubin, Direct 0.1 mg/dL (0.0-0.2); Bilirubin, Total 0.3 mg/dL (0.2-1.0); Total Protein 6.9 g/dL (6.4-8.2)
== END 2022-05-05 16:21 | disposition home or self-care (01) ==
LOC: NCHCN 16:20
PROVIDERS: PCP Family Medicine; Visit Provider Family Medicine
DX: R74.8 Abnormal levels of other serum enzymes (principal); R91.8 Other nonspecific abnormal finding of lung field; Z00.00 Encounter for general adult medical examination without abnormal findings; R73.03 Prediabetes
CPT/HCPCS: 80076; 83036

== ENCOUNTER 2023-03-09 08:40 | Outpatient (REF) | payer OTHER, SELFPAY ==
--- NOTE | 2023-03-09 08:35 | SKI_PTH ---
PATIENT: Edilson Charles LOC: [facility] U#:[id number] AGE/SX: 72/M ROOM: RE03/09/[address]: Vivi Noland MD : 1950 BED: DIS: 03/09/2023 SPEC #: [id number] RECD: 03/09/23 12:54 STATUS: WENDY REReginaldo #: [id number] NIELS: 03/09/23 08:[address]: Vivi Noland DEPT: Surgical Specimen RECD BY: Rita Danielle ENTERED: 03/09/23 12:54 SP TYPE: SKI OT DR: Jama Melgar Tissues: 1 - SKIN BIOPSY(SHAVE/PUNCH) Procedures: SKIN LEVEL 4 Comments: [id number]
== END 2023-03-09 08:41 | disposition home or self-care (01) ==
LOC: LBN 08:40
PROVIDERS: PCP Family Medicine; Visit Provider Surgery
DX: C44.622 Squamous cell carcinoma of skin of right upper limb, including shoulder (principal)
CPT/HCPCS: 88305

== ENCOUNTER 2023-05-01 12:45 | Emergency (ER) | payer OTHER, SELFPAY ==
[2023-05-01 12:49] VITALS: BP 162/69; PULSE 88; RESP 18; TEMP 36.6; O2SAT 97
--- NOTE | 2023-05-01 13:15 | DI.RAD_ITS ---
Exam(s) XR FOOT LT COMPLETE EXAM: XR FOOT LT COMPLETE CLINICAL HISTORY: plantar pain. TECHNIQUE: 2D digital imaging was performed of the left foot. Three images were obtained. AP, obli que and lateral views were obtained. COMPARISON: No exams were available for comparison FINDINGS: BONES: No acute fracture is present. No bony destructive lesion is seen. There is a small enthesophyt e at the posterior calcaneus. JOINTS: No dislocation present. Degenerative changes are seen in the foot particularly at the 1st MTP joint and the anterior ankle joint. SOFT TISSUE: Normal. IMPRESSION: No acute fracture or dislocation. DATA REPOSITORY: RADIATION DOSE DELIVERED:
[2023-05-01] MEDS: Acetaminophen 325 MG TAB 650 MG PO (13:38)
[2023-05-01] MEDS: Diclofenac 1% Gel 100 GM TUBE TP (13:38)
--- NOTE | 2023-05-01 14:07 | DI.VRAD_ITS ---
PROCEDURE INFORMATION: Exam: XR Left Foot Exam date and time: 05/01/2023 1:54 PM Age: 72 years old Clinical indication: Other: Plantar pain TECHNIQUE: Imaging protocol: Radiologic exam of the left foot. Views: 3 or more views. COMPARISON: No relevant prior studies available. FINDINGS: Bones/joints: Normal. Degenerative change at 1st MTP joint. Soft tissues: Normal. IMPRESSION: No acute findings. Dictated and Authenticated by: Mikie Govea MD. Ordering:KAT Stevenson MD
--- NOTE | 2023-05-01 14:12 | ED.GENADUL_ITS ---
Discharge Plan Disposition Patient Disposition: Home Discharge Details Clinical Impression: Foot arch pain Primary Care Provider: Jama Melgar ED Provider: [place] Home Meds and New Rx's Prescriptions: Continued acetaminophen 325 MG tablet 650 mg PO PRN PRN ibuprofen 200 MG capsule 200 - 400 mg PO PRN PRN Discharge Instructions Instructions: Arthralgia (ED) Additional Instructions: Please use the provided walking boot for any weightbearing activities. You may continue to use [id number] pain medication as needed along with the provided diclofenac cream as directed on packaging. If you have any new or significant worsening of symptoms feel free to return the emergency department for reassessment otherwise follow-up with podiatry at soonest available appointment. Stand Alone Forms: Work Release Referrals: [facility] [Provider Group] Medical Decision Making Patient presenting to the emergency department for chief complaint of left foot pain. Patient reports approximately 2 weeks ago he started having left foot pain mainly in his arch. Since then he has tried different shoes, arch supports, and [id number] pain medication intermittently but has not helped relieve patient's symptoms. He denies any injury or trauma prior. Does state many years ago he did injure this foot but no signs of reinjury recently. Patient denies any systemic symptoms. Physical exam shows tenderness to palpation of the plantar medial aspect of the soft tissue of the foot with some slight tenderness noted distally but no heel tenderness and no other real tenderness noted. Patient does have range of motion of toes that does cause slight discomfort but otherwise unremarkable. We will plan on performing radiological imaging for any occult fracture. I suspect planter fasciitis. findings are not consistent with gout, cellulitis, or significant trauma. Pending results will give patient acetaminophen and diclofenac gel. Reviewed radiological imaging that shows no acute findings noted except for some degenerative changes at first MTP. Patient placed in a walking boot to see if this would help with his symptoms. Patient otherwise encouraged to continue use the diclofenac gel and acetaminophen for pain control. Patient did state he is on a cancellation list for podiatry but I did put in a referral for him to be seen as well given the severity of his pain and discomfort. After discussion of diagnosis and plan of care patient has no further needs, questions, or concerns and states clear understanding to return to the emergency department for any worsening symptoms. This documentation was generated using [employer] system, please disregard any oddities of phrase or misspellings. Imaging Data Radiologic Study: Imaging: X-Ray Radiologist's impression: Exam(s) PROCEDURE INFORMATION: Exam: XR Left Foot Exam date and time: 05/01/2023 1:54 PM Age: 72 years old Clinical indication: Other: Plantar pain TECHNIQUE: Imaging protocol: Radiologic exam of the left foot. Views: 3 or more views. COMPARISON: No relevant prior studies available. FINDINGS: Bones/joints: Normal. Degenerative change at 1st MTP joint. Soft tissues: Normal. IMPRESSION: No acute findings. HPI General Mode of arrival: ambulatory . Date/Time Provider Initiated Documentation: 05/01/23 12:46 . Limitations to Documentation: no limitations . Information obtained by: patient, family and RN notes reviewed . History of Present Illness 72 year old M presents to the emergency department with the chief complaint of Left foot pain, described as moderate and severe, and is localized to the left and lower extremity. Patient started experiencing this week(s) (2) and it has been constant. No relieving factors improve symptom(s), No exacerbating factors reported . Patient notes no other symptoms.. Related Data Home Medications Medication Instructions Recorded Confirmed acetaminophen 325 mg tablet 650 mg PO PRN PRN 02/15/18 05/01/23 ibuprofen 200 mg capsule 200 - 400 mg PO PRN PRN 02/17/18 05/01/23 Allergies Allergy/AdvReac Type Severity Reaction Status Date / Time coconut oil Allergy Unknown Itching Unverified 05/01/23 12:52 pineapple Allergy Unknown Itching Unverified 05/01/23 12:52 per pt report pneumococcal vaccine AdvReac Severe Vasovagal Unverified 05/01/23 12:52 [From Pneumovax-] syncope-requiring hosp.admission hydrocodone AdvReac Intermediate Bradycardia, Unverified 05/01/23 12:52 hypotension General Stated Complaint: Orthopedic DEEPTI: 4 Review of Systems Constitutional Constitutional: Denies fever(s) Musculoskeletal Musculoskeletal: Reports as per HPI, Reports arthralgias, Reports joint swelling and Reports stiffness Integumentary/Breasts Skin/Breast: Reports erythema and Denies rash Neurologic Neurologic: Denies paresthesias PFSH All Active Problems Foot arch pain (Acute) Hyperplastic colon polyp (Acute) Serrated adenoma of colon (Acute) Screening for colon cancer (Acute) Alcohol use (Acute) Abdominal aortic aneurysm (Acute) Cortical cataract of left eye (Acute) Nuclear sclerotic cataract of left eye (Acute) Posterior subcapsular age-related cataract of left eye (Acute) Medical History Tubular adenoma of colon History of TIA (transient ischemic attack) 2000 Cataract Leucocytosis Reaction to Pneumovax immunization Vasovagal syncope Pt. stated this was a reaction to the pneumovax Syncope HTN (hypertension) Carpal tunnel syndrome of left wrist Cervical radiculopathy Tendinitis of long head of biceps brachii of left shoulder Acromioclavicular joint separation Encounter for screening for other viral diseases Skin tag Trigger finger, right ring finger Injected: 10/13/2019 Discharge planning issues Fracture of five ribs of left side Surgical History History of colonoscopy (~05/2008) 02/2022 Posterior subcapsular age-related cataract, right eye Cortical cataract of right eye H/O elbow surgery right tennis elbow surgery S/P bilateral inguinal hernia repair Dr. 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 DOMINGUEZ Left Knee/ Dr. Dominguez Family History Father Hypertension Stroke Social History Smoking/Tobacco Use Status: Current every day Tobacco Type: cigarettes Smoking packs per day: 1 Smoking cigarettes per day: 20.0 Counseling given: provider counseling and patient declined Smoking risk assessment performed?: Yes Alcohol Intake: current Alcohol Intake frequency: 0-2 drinks per day Drug use: Never Substance use type: does not use Current gender identity: male Do you feel safe at home: Yes Do you feel safe in your relationship?: Yes Exam Const General: cooperative, no acute distress and not ill appearing Orientation: alert, awake and oriented x3 HENMT Mouth: moist mucous membranes Resp Effort & Inspection: normal respiratory effort, able to speak in complete sentences and no respiratory distress Cardio Rate: regular rate Rhythm: regular rhythm Pulses: normal peripheral pulses Skin General skin exam: no rashes or lesions noted Neuro General: patient alert, patient awake, patient oriented x3 and moves all extr emities Extrem General: normal exam except as noted Left lower extremity: foot Details: normal to inspection, tenderness Location: of the plantar foot (mid ), toes with normal ROM, edema (slight), vascular exam Details: dorsalis pedis pulse present, posterior tibial pulse present and normal capillary refill and tendon exam Details: active flexion normal and active extension normal; no unusual warmth, no abrasions, no lacerations, no ecchymosis and no crepitus Course Vital Signs Vital signs: Vital Signs Temperature 36.6 C 05/01/23 12:49 Pulse 88 05/01/23 12:49 Respiratory Rate 18 05/01/23 12:49 Blood Pressure 162/69 H 05/01/23 12:49 Pulse Oximetry 97 05/01/23 12:49 Temperature 36.6 C 05/01/23 12:49 Temperature Source Oral 05/01/23 12:49 Pulse 88 05/01/23 12:49 Respiratory Rate 18 05/01/23 12:49 Respiratory Effort Normal, Non-Labored 05/01/23 12:53 Blood Pressure 162/69 H 05/01/23 12:49 Blood Pressure Position Sitting 05/01/23 12:49 Pulse Oximetry 97 05/01/23 12:49 Oxygen Delivery Method Room Air 05/01/23 12:49 Oxygen Flow Rate 0 05/01/23 12:49 Pain Level 5 05/01/23 12:49
--- NOTE | 2023-05-01 14:32 | NUR.NOTE ---
Pt referred to Podiatry for left foot pain and to be seen in 1-2 weeks
== END 2023-05-01 14:24 | disposition home or self-care (01) ==
PROVIDERS: Emergency Provider Nurse Practitioner Family; PCP Family Medicine
DX: M79.672 Pain in left foot (principal); I10 Essential (primary) hypertension; F17.210 Nicotine dependence, cigarettes, uncomplicated; Z86.73 Personal history of transient ischemic attack (TIA), and cerebral infarction without residual deficits
CPT/HCPCS: 99283; 73630

== ENCOUNTER 2023-05-06 15:58 | Outpatient (REF) | payer OTHER, SELFPAY ==
[2023-05-06 19:14] LABS: Hemoglobin A1C 5.9 % (<5.7)
[2023-05-06 19:17] LABS: ALT 24 U/L (16-63); AST 13 U/L (15-37); Albumin 3.9 g/dL (3.4-5.0); Alkaline Phosphatase 75 U/L (46-116); Anion Gap 7.2 mmol/L (3-11); BUN 18 mg/dL (7-18); Bilirubin, Total 0.4 mg/dL (0.2-1.0); CO2 26.8 mmol/L (21.0-32.0); Calcium 9.1 mg/dL (8.5-10.1); Chloride 106 mmol/L (98-107); Estimated GFR 79.97 (mL/min/1.73m2); Glucose 83 mg/dL (74-106); Sodium 140 mmol/L (136-145); Total Protein 7.3 g/dL (6.4-8.2)
== END 2023-05-06 15:59 | disposition home or self-care (01) ==
LOC: NCHCN 15:58
PROVIDERS: PCP Family Medicine; Visit Provider Family Medicine
DX: I10 Essential (primary) hypertension (principal); R73.03 Prediabetes; F10.90 Alcohol use, unspecified, uncomplicated; Y90.9 Presence of alcohol in blood, level not specified
CPT/HCPCS: 80053; 83036

== ENCOUNTER 2023-05-11 22:34 | Emergency (ER) | payer OTHER, SELFPAY ==
[2023-05-11 22:38] VITALS: BP 178/114; PULSE 87; RESP 18; TEMP 36.3
--- NOTE | 2023-05-11 22:45 | DI.RAD_ITS ---
Exam(s) XR FOOT LT COMPLETE EXAM: XR FOOT LT COMPLETE CLINICAL HISTORY: hit foot, pain at base of 1st metatarsal. TECHNIQUE: 2D digital imaging was performed. COMPARISON: CR,XR XR FOOT LT COMPLETE from 05/01/2023 FINDINGS: 3 views There is no evidence of fracture nor diastasis of the Lisfranc joint. There are degenerative changes again noted in the metatarsophalangeal joint of the great toe-moderate. Other articulations appear unremarkable. Small in these 0 fight noted posteriorly at the insertion site of Achilles tendon on the posterior ca lcaneus. No pes planus. Type 2 accessory ossicle noted on the medial aspect of the foot adjacent to the navicular tuberosity. IMPRESSION: As above. DATA REPOSITORY: RADIATION DOSE DELIVERED:
--- NOTE | 2023-05-11 22:47 | W.ED.GENAD ---
Discharge Plan Disposition Patient Disposition: Home Discharge Details Clinical Impression: Metatarsalgia of left foot Primary Care Provider: Jama Melgar ED Provider: Reinaldo Alanis Home Meds and New Rx's Prescriptions: No Action acetaminophen 325 MG tablet 650 mg PO PRN PRN ibuprofen 200 MG capsule 200 - 400 mg PO PRN PRN Discharge Instructions Instructions: Metatarsalgia (DC) Additional Instructions: At this time the x-ray shows no evidence of fracture. I suspect you have notable bruising and contusion over your proximal metatarsal bone. I suspect there is also irritation for your plantar fascia. At this time recommendations would be nonweightbearing for the next 24 to 48 hours, and then slow gradual transition to weightbearing as tolerated over the next week or 2. Please take Tylenol regularly, 1000 mg every 6 hours is the maximum dose. Please apply the Voltaren gel 3 times per day. Please ice the area frequently. 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 If you notice any worsening of your symptoms, or any new symptoms such as vomiting, diarrhea, fever, chills, shortness of breath, chest pain, numbness, weakness, or fainting , please return immediately to the emergency department for reevaluation. Please follow up with your primary care provider as soon as possible for reassessment and reevaluation. As always, it was a pleasure participating in your medical care today. 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 About 5 weeks ago the patient initially had some pain in the left foot. Over the last few weeks he has received an x-ray which was relatively unremarkable, and he has been nursing it back to health with Voltaren gel, a walking boot, rest and ice. He had been doing very well until tonight when he was in his garage, and tripped over a vacuum tube. Unfortunately when he tripped he subsequently slammed his left foot down fairly hard on the ground. This caused significant return of his pain in the areas where it had previously been present. He took 1000 mg of Tylenol without any significant improvement. Patient came to the ER for further assessment. He denies any numbness or tingling. Pain is located in the arch of his foot. No ankle pain. No pain in the toes, however pain in the arch of his foot is worsened with movement and weightbearing. No other tenderness or complaints at this time. Exam demonstrates focal tenderness at the first metatarsal on the left foot at the proximal component. No Achilles or calcaneal tenderness. No significant tenderness on palpation of the toes. Suspect notably worsened/exacerbated metatarsalgia, however Planter fasciitis is also on the differential. With the previous injury and now the repeat injury I do have concern on the more long-term component for potential reflex and pathetic dystrophy. We will get an x-ray to rule out acute fracture. We will give Toradol, Lidoderm patch and Voltaren gel. We will give ice therapy. We will monitor closely and reassess. 12:31 AM X-ray negative for acute process. Patient's pain is mildly improved. Will give Voltaren gel for home use, recommend continue Tylenol, nonweightbearing for the next 48 to 72 hours, with gradual transition to boot after that. Recommend continued ice. Suspect metatarsalgia with plantar fasciitis. Patient has established follow-up with podiatry and orthopedics this week. Patient otherwise stable for discharge. Discussed red flags for which to return. I have extensively reviewed the treatment plan and discharge instructions with the patient and their family. I have addressed all patient concerns at this time. The patient and family was made aware of what symptoms to monitor for that would warrant a return to the emergency department. Discussed the plan with the patient and family, they demonstrate verbal understanding and agreement with our assessment and plan at this time. The documentation in this chart was dictated using [employer] dictation software. Please excuse any dictation errors. FINDINGS: Bones/joints: Bone mineralization is normal. No acute fracture or dislocation. Joint space narrowing and spurring of the first metatarsophalangeal joint consistent with osteoarthritis. Soft tissues: Soft tissues appear normal. No radiopaque foreign bodies. IMPRESSION: 1. No acute fracture or dislocation. 2. Joint space narrowing and spurring of the first metatarsophalangeal joint consistent with osteoarthritis. Thank you for allowing us to participate in the care of your patient. Dictated and Authenticated by: Silva Jones MD 05/12/2023 12:11 AM Eastern Time ([place] & [place]) HPI General Date/Time Provider Initiated Documentation: 05/11/23 22:36. 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 About 5 weeks ago the patient initially had some pain in the left foot. Over the last few weeks he has received an x-ray which was relatively unremarkable, and he has been nursing it back to health with Voltaren gel, a walking boot, rest and ice. He had been doing very well until tonight when he was in his garage, and tripped over a vacuum tube. Unfortunately when he tripped he subsequently slammed his left foot down fairly hard on the ground. This caused significant return of his pain in the areas where it had previously been present. He took 1000 mg of Tylenol without any significant improvement. Patient came to the ER for further assessment. He denies any numbness or tingling. Pain is located in the arch of his foot. No ankle pain. No pain in the toes, however pain in the arch of his foot is worsened with movement and weightbearing. No other tenderness or complaints at this time. Related Data Home Medications Medication Instructions Recorded Confirmed acetaminophen 325 mg tablet 650 mg PO PRN PRN 02/15/18 05/05/23 ibuprofen 200 mg capsule 200 - 400 mg PO PRN PRN 02/17/18 05/05/23 Allergies Allergy/AdvReac Type Severity Reaction Status Date / Time coconut oil Allergy Unknown Itching Verified 05/11/23 22:47 pineapple Allergy Unknown Itching Verified 05/11/23 22:47 per pt report pneumococcal vaccine AdvReac Severe Vasovagal Verified 05/11/23 22:47 [From Pneumovax-] syncope-requiring hosp.admission hydrocodone AdvReac Intermediate Bradycardia, Verified 05/11/23 22:47 hypotension General Stated Complaint: Orthopedic DEEPTI: 4 Review of Systems All systems reviewed & are unremarkable except as noted in HPI and below PFSH All Active Problems (Updated 05/11/23 @ 23:04 by Reinaldo Alanis DO) Metatarsalgia of left foot (Acute) Pain in left foot (Acute) Metatarsophalangeal (joint) sprain (Acute) Posterior tibial tendinitis of left leg (Acute) Plantar fasciitis (Acute) Foot arch pain (Acute) Hyperplastic colon polyp (Acute) Serrated adenoma of colon (Acute) Screening for colon cancer (Acute) Alcohol use (Acute) Abdominal aortic aneurysm (Acute) Cortical cataract of left eye (Acute) Nuclear sclerotic cataract of left eye (Acute) Posterior subcapsular age-related cataract of left eye (Acute) Medical History Tubular adenoma of colon History of TIA (transient ischemic attack) 2000 Cataract Leucocytosis Reaction to Pneumovax immunization Vasovagal syncope Pt. stated this was a reaction to the pneumovax Syncope HTN (hypertension) Carpal tunnel syndrome of left wrist Cervical radiculopathy Tendinitis of long head of biceps brachii of left shoulder Acromioclavicular joint separation Encounter for screening for other viral diseases Skin tag Trigger finger, right ring finger Injected: 10/13/2019 Discharge planning issues Fracture of five ribs of left side Surgical History History of colonoscopy (~05/2008) 02/2022 Posterior subcapsular age-related cataract, right eye Cortical cataract of right eye H/O elbow surgery right tennis elbow surgery S/P bilateral inguinal hernia repair Dr. 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 DOMINGUEZ Left Knee/ Dr. Dominguez Family History Father Hypertension Stroke Social History Smoking/Tobacco Use Status: Current every day Tobacco Type: cigarettes Smoking packs per day: 1 Smoking cigarettes per day: 20.0 Counseling given: provider counseling and patient declined Smoking risk assessment performed?: Yes Alcohol Intake: current Alcohol Intake frequency: 0-2 drinks per day Drug use: Never Substance use type: does not use Current gender identity: male Do you feel safe at home: Yes Do you feel safe in your relationship?: Yes Exam Narrative Exam Narrative: 1.Const: Well-nourished, Well-developed, appearing stated age 2.Eyes: PERRL, no conjunctival injection, and symmetrical lids. 3.ENT: Atraumatic external nose and ears. Moist MM. Neck: Symmetric, trachea midline, No thyromegaly. 4.CVS: +S1/S2, No murmurs or gallops. Peripheral pulses 2+ and equal in all extremities. Brisk capillary refill in all extremities. 5.RESP: Unlabored respiratory effort. Clear to auscultation bilaterally. No wheezes rales or rhonchi 6.GI: Soft, Nontender/Nondistended, No hepatosplenomegaly. No guarding or rebound. 7.MSK: Normocephalic/Atraumatic, minimal redness at the arch of the foot. Minimal swelling on the left arch. No significant edema. No tenderness on the heel, calcaneus, Achilles tendon, or toes. There is focal point tenderness over the first metatarsal at the proximal aspect. Pain is present on the dorsal and ventral side. Brisk capillary refill is noted. Normal sensation. 8.Skin: Warm, Dry. No rashes or lesions. 9.Neuro: repair mechanic II-XII grossly intact. Sensation grossly intact, no focal neurologic deficits. 10.Psych: (AAO) x3. Appropriate mood and affect Course Vital Signs Vital signs: Vital Signs Temperature 36.3 C L 05/11/23 22:38 Pulse 87 05/11/23 22:38 Respiratory Rate 18 05/11/23 22:38 Blood Pressure 178/114 H 05/11/23 22:38 Temperature 36.3 C L 05/11/23 22:38 Temperature Source Temporal Artery Scan 05/11/23 22:38 Pulse 87 05/11/23 22:38 Respiratory Rate 18 05/11/23 22:38 Respiratory Effort Normal 05/11/23 22:42 Blood Pressure 178/114 H 05/11/23 22:38 Pain Level 10 05/11/23 22:38
[2023-05-11] MEDS: Diclofenac 1% Gel 100 GM TUBE TP (23:21)
[2023-05-11] MEDS: Ketorolac 15 MG/ML VIAL IM (23:21)
[2023-05-11] MEDS: Lidocaine 5% Patch 1 PATCH TP (23:22)
[2023-05-11 23:55] VITALS: BP 168/106
[2023-05-11] MEDS: oxyCODONE 5 MG TAB PO (23:56)
--- NOTE | 2023-05-12 00:12 | DI.VRAD_ITS ---
PROCEDURE INFORMATION: Exam: XR Left Foot Exam date and time: 05/11/2023 10:57 PM Age: 72 years old Clinical indication: Pain; Foot; Left TECHNIQUE: Imaging protocol: Radiologic exam of the left foot. Views: 3 or more views. Total images: 3 COMPARISON: CR XR FOOT LT COMPLETE 05/01/2023 1:54 PM FINDINGS: Bones/joints: Bone mineralization is normal. No acute fracture or dislocation. Joint space narrowing and spurring of the first metatarsophalangeal joint consistent with osteoarthritis. Soft tissues: Soft tissues appear normal. No radiopaque foreign bodies. IMPRESSION: 1. No acute fracture or dislocation. 2. Joint space narrowing and spurring of the first metatarsophalangeal joint consistent with osteoarthritis. Dictated and Authenticated by: Silva Jones MD. Ordering:QIAN Najera MD
== END 2023-05-11 23:56 | disposition home or self-care (01) ==
PROVIDERS: Emergency Provider Student in an Organized Health Care Education/Training Program; PCP Family Medicine
DX: S99.922A Unspecified injury of left foot, initial encounter (principal); I10 Essential (primary) hypertension; Z86.73 Personal history of transient ischemic attack (TIA), and cerebral infarction without residual deficits; W22.8XXA Striking against or struck by other objects, initial encounter; Y92.008 Other place in unspecified non-institutional (private) residence as the place of occurrence of the external cause; Z72.0 Tobacco use
CPT/HCPCS: 96372; 99283; 73630; J1885

== ENCOUNTER 2023-05-17 13:45 | Outpatient (CLI) | payer OTHER, SELFPAY ==
--- NOTE | 2023-05-17 11:30 | DI.RAD_ITS ---
Exam(s) XR HIP RT COMPLETE AP PELVIS EXAM: XR HIP RT COMPLETE AP PELVIS CLINICAL HISTORY: R leg pain. TECHNIQUE: 2D digital imaging was performed. Two views COMPARISON: No exams were available for comparison FINDINGS: BONES: No acute fracture is present. No bony destructive lesion is seen. JOINTS: No dislocation present. Mild bilateral hip joint space narrowing and mild periarticular spu rring. SI joints and pubic symphysis are unremarkable. SOFT TISSUE: Vasectomy clips. IMPRESSION: No acute abnormality. Mild degenerative changes of both hips. DATA REPOSITORY: RADIATION DOSE DELIVERED:
--- NOTE | 2023-05-17 11:35 | DI.RAD_ITS ---
Exam(s) XR LUMBAR SPINE AP, LAT EXAM: XR LUMBAR SPINE AP, LAT CLINICAL HISTORY: R leg pain. TECHNIQUE: 2D digital imaging was performed. Five views. COMPARISON: No exams were available for comparison FINDINGS: BONES: No fracture or destructive lesion. Vertebral body heights are maintained. Mild old endplate o steophytes. Facet hypertrophy noted at L4-5 and L5-S1.. DISKS: Intervertebral disc spaces are maintained. ALIGNMENT: Lumbar spinal alignment is within normal limits. SOFT TISSUE: Aorta is calcified and appears normal in diameter. IMPRESSION: Degenerative changes greatest of the facet joints at L 4 5 and L5-S1. DATA REPOSITORY: RADIATION DOSE DELIVERED:
== END 2023-05-17 13:46 | disposition home or self-care (01) ==
LOC: DIORS 13:45
PROVIDERS: PCP Family Medicine; Visit Provider Physician Assistant
DX: M51.36 Other intervertebral disc degeneration, lumbar region (principal); M16.0 Bilateral primary osteoarthritis of hip
CPT/HCPCS: 72100; 73502

== ENCOUNTER → 2023-06-03 01:35 | Outpatient (CLI) | payer OTHER, SELFPAY ==
--- NOTE | 2023-06-03 08:45 | DI.MRI_ITS ---
Exam(s) MR LOWER EXTREMITY LT WO EXAM: MR LOWER EXTREMITY LT WO CLINICAL HISTORY: pain in left foot and ankle,PLANTAR FASCIAL FIBROMATOSIS,M72.2,M77.42,. TECHNIQUE: Multiplanar multisequence MRI was performed.. COMPARISON: None. FINDINGS: BONES/JOINTS: Edema in the 1st cuneiform. No discrete fracture. Degenerative cyst cuboid. Degenera tive cyst in the medial 1st metatarsal head. Degenerative changes 1st MTP joint.. MUSCULOTENDINOUS STRUCTURES: Visualized portion of the plantar fascia is unremarkable. The visualized intrinsic muscles and tendons of the foot are unremarkable. SOFT TISSUES: Edema in the subcutaneous fat. OTHER FINDINGS: None. IMPRESSION: Bone contusion involving the 1st cuneiform. Degenerative changes 1st MTP joint. DATA REPOSITORY:
--- NOTE | 2023-06-03 15:30 | DI.MRI_ITS ---
Exam(s) MR LOWER JOINT LT WO EXAM: MR LOWER JOINT LT WO CLINICAL HISTORY: pain in left foot and ankle,PLANTAR FASCIAL FIBROMATOSIS,M72.2 TECHNIQUE: Multiplanar multisequence MRI was performed without intravenous contrast. COMPARISON: CR,XR XR FOOT LT COMPLETE from 05/11/2023 FINDINGS: BONES/JOINTS: Marrow edema in 1st cuneiform. No discrete fracture. Five findings could represent geoff ne contusion. Remaining marrow signal is normal.. No bone lesions identified. The talar dome is smo oth. The ankle mortise is maintained. No joint effusion is present. LIGAMENTS: The tibiofibular and calcaneofibular ligaments are intact. The talofibular ligaments are i ntact. The deltoid ligament is intact. The syndesmosis is unremarkable. Sinus tarsi is normal. MUSCULOTENDINOUS STRUCTURES: Achilles tendon: Unremarkable. Plantar fascia: Unremarkable. Anterior Extensor tendons: Unremarkable. Posterior Tibialis: Unremarkable. Flexor Digitorum longus: Unremarkable. Flexor Hallucis longus: Unremarkable. Peroneus longus: Unremarkable. Peroneus brevis:Unremarkable. SOFT TISSUES: Edema in subcutaneous fat. No drainable collection. OTHER FINDINGS: None. IMPRESSION: Edema in the 1st cuneiform without discrete fracture, consistent with bone contusion. Plantar fascia appears normal. DATA REPOSITORY:
== END ==
PROVIDERS: PCP Family Medicine; Visit Provider Podiatrist
DX: M72.2 Plantar fascial fibromatosis (principal); M76.822 Posterior tibial tendinitis, left leg; M79.672 Pain in left foot; S90.32XA Contusion of left foot, initial encounter; X58.XXXA Exposure to other specified factors, initial encounter
CPT/HCPCS: 73721; 73718

== ENCOUNTER → 2023-06-03 01:35 | Outpatient (CLI) | payer OTHER, SELFPAY ==
--- NOTE | 2023-06-03 15:08 | DI.MRI_ITS ---
Exam(s) MR LUMBAR SPINE WO EXAM: MR LUMBAR SPINE WO CLINICAL HISTORY: BACK PAIN, SPINAL STENOSIS LUMBAR REGION,M48.061. TECHNIQUE: Multiplanar multisequence MRI of the Lumbar spine was performed. COMPARISON: MR MRI - LUMBAR SPINE WO CONTRAST from 03/18/2015 CR XR LUMBAR SPINE AP, LAT from 05/17/2023 FINDINGS: Bones: The last intervertebral disc space is designated the L5/S1 level for the numbering purpose of this ex amination. Rudimentary disc at S1-2 The vertebral body heights are well maintained. Alignment: Unremarkable. The marrow signal characteristics are unremarkable. Hemangioma again noted at L4. Cord: The conus tip ends at the T12 level. It is of normal size and signal intensity. T12-L1: No focal disc herniation is present. No central spinal canal stenosis.No neural foraminal st enosis. L1-2: No focal disc herniation is present. No central spinal canal stenosis.No neural foraminal sten osis. L2-3: No focal disc herniation is present. No central spinal canal stenosis.No neural foraminal kay nosis. L3-4: No focal disc herniation is present. No central spinal canal stenosis.No neural foraminal kay nosis. L4-5:Minimal disc bulging. No focal disc herniation is present. No central spinal canal stenosis.No neural foraminal stenosis. L5-S1: Minimal disc bulging. Mild facet degenerative changes. No focal disc herniation is present . No central spinal canal stenosis.No neural foraminal stenosis. The visualized SI joints and sacrum are unremarkable. Renal cysts. No follow-up recommended. IMPRESSION: No evidence of significant spinal stenosis or neuroforaminal narrowing. No evidence of disc herniation. Mild degenerative disc changes and facet degenerative changes at L5- S1. DATA REPOSITORY:
== END ==
PROVIDERS: PCP Family Medicine; Visit Provider Student in an Organized Health Care Education/Training Program
DX: M48.061 Spinal stenosis, lumbar region without neurogenic claudication (principal)
CPT/HCPCS: 72148

== ENCOUNTER 2023-07-21 07:17 | Emergency (ER) | payer OTHER, SELFPAY ==
[2023-07-21 07:22] VITALS: BP 140/91; PULSE 81; RESP 18; TEMP 36.8; O2SAT 96
--- NOTE | 2023-07-21 07:58 | W.ED.GENAD ---
HPI General Date/Time Provider Initiated Documentation: 07/21/23 07:39. HPI Narrative: 72-year-old male history of remote right eye cataract surgery presents with eye discomfort pressure-like in nature tearing and slight itching. Has noticed some discharge from his eyes. No fevers no chills no nausea no vomiting no other systemic signs of illness. No history of glaucoma. Related Data Home Medications Medication Instructions Recorded Confirmed acetaminophen 325 mg tablet 650 mg PO PRN PRN 02/15/18 07/21/23 ibuprofen 200 mg capsule 200 - 400 mg PO PRN PRN 02/17/18 07/21/23 diclofenac sodium 1 % topical gel 4 g topical QID #100 grams 05/24/23 07/21/23 ofloxacin 0.3 % eye drops See Rx Instructions ophthalmic 07/21/23 (eye) .COMPLEX #5 mL Previous Rx's Medication Instructions Recorded diclofenac sodium 1 % topical gel 4 g topical QID #100 grams 05/24/23 ofloxacin 0.3 % eye drops See Rx Instructions ophthalmic 07/21/23 (eye) .COMPLEX #5 mL Allergies Allergy/AdvReac Type Severity Reaction Status Date / Time coconut oil Allergy Unknown Itching Verified 06/10/23 14:40 pineapple Allergy Unknown Itching Verified 06/10/23 14:40 per pt report pneumococcal vaccine AdvReac Severe Vasovagal Verified 06/10/23 14:40 [From Pneumovax-] syncope-requiring hosp.admission hydrocodone AdvReac Intermediate Bradycardia, Verified 06/10/23 14:40 hypotension General Stated Complaint: EyeProblem DEEPTI: 3 Review of Systems Narrative: Review of Systems Constitutional: negative Eyes: Eye pain ENT: negative Cardiovascular: negative Respiratory: negative Gastrointestinal: negative : negative Musculoskeletal: negative Skin: negative Neurologic: negative Psych: negative Exam Narrative Exam Narrative: Eye: OD 20/25 ocular pressure 24, no corneal abrasion no conjunctival injection, pupil equal round reactive to light, extraocular motion intact; OS 20/20 ocular pressure 20, no corneal abrasion, mild conjunctival injection, pupil equal round reactive to light, extraocular motion intact. Course Vital Signs Vital signs: Vital Signs Temperature 36.8 C 07/21/23 07:22 Pulse 81 07/21/23 07:22 Respiratory Rate 18 07/21/23 07:22 Blood Pressure 140/91 H 07/21/23 07:22 Pulse Oximetry 96 07/21/23 07:22 Temperature 36.8 C 07/21/23 07:22 Pulse 81 07/21/23 07:22 Respiratory Rate 18 07/21/23 07:22 Respiratory Effort Normal, Non-Labored 07/21/23 07:53 Blood Pressure 140/91 H 07/21/23 07:22 Blood Pressure Position Supine 07/21/23 07:22 Pulse Oximetry 96 07/21/23 07:22 Oxygen Delivery Method Room Air 07/21/23 07:22 Oxygen Flow Rate 0 07/21/23 07:22 Pain Level 4 07/21/23 07:22 Medical Decision Making 73-year-old male history of remote right cataract surgery presents with eye discharge right eye discomfort pressure/itching sensation, no history of glaucoma, OD 20/25, OS 20/20, mild conjunctival injection of the left eye no conjunctival injection of the right eye, slight clear tearing bilaterally, no signs of corneal abrasion or corneal ulcer, slightly elevated ocular pressure on the right to a pressure of 24, upper limit of normal pressure left eye to a pressure of 20. Pupils round equal reactive to light. Clinical suspicion for viral conjunctivitis versus early bacterial conjunctivitis must also consider ocular hypertension versus early glaucoma given pressures upper limit of normal. Given vision intact and signs and symptoms more closely related to conjunctivitis given bilateral eye involvement tearing itching sensation will treat empirically with ofloxacin. Given strict return precautions for worsening symptoms. Patient is going to follow-up with [facility], again given strict return precautions for any worsening symptoms concerning for glaucoma or worsening infection. Quality:SDOH Health Related Social Needs: No Data to Display PFSH All Active Problems (Updated 07/21/23 @ 08:04 by Sarabjit Du MD) Eye pain (Acute) Contusion of left foot, initial encounter (Acute) Spinal stenosis of lumbar region (Acute) Pain in left foot (Acute) Metatarsophalangeal (joint) sprain (Acute) Posterior tibial tendinitis of left leg (Acute) Plantar fasciitis (Acute) Hyperplastic colon polyp (Acute) Serrated adenoma of colon (Acute) Screening for colon cancer (Acute) Alcohol use (Acute) Abdominal aortic aneurysm (Acute) Cortical cataract of left eye (Acute) Nuclear sclerotic cataract of left eye (Acute) Posterior subcapsular age-related cataract of left eye (Acute) Medical History Tubular adenoma of colon History of TIA (transient ischemic attack) 2000 Cataract Leucocytosis Reaction to Pneumovax immunization Vasovagal syncope Pt. stated this was a reaction to the pneumovax Syncope HTN (hypertension) Carpal tunnel syndrome of left wrist Cervical radiculopathy Tendinitis of long head of biceps brachii of left shoulder Acromioclavicular joint separation Encounter for screening for other viral diseases Skin tag Trigger finger, right ring finger Injected: 10/13/2019 Discharge planning issues Fracture of five ribs of left side Surgical History History of colonoscopy (~05/2008) 02/2022 Posterior subcapsular age-related cataract, right eye Cortical cataract of right eye H/O elbow surgery right tennis elbow surgery S/P bilateral inguinal hernia repair Dr. 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 DOMINGUEZ Left Knee/ Dr. Dominguez Family History Father Hypertension Stroke Social History Smoking/Tobacco Use Status: Current every day Tobacco Type: cigarettes Smoking packs per day: 1 Smoking cigarettes per day: 20.0 Counseling given: provider counseling and patient declined Smoking risk assessment performed?: Yes Alcohol Intake: current Alcohol Intake frequency: 0-2 drinks per day Drug use: Never Substance use type: does not use Current gender identity: male Do you feel safe at home: Yes Do you feel safe in your relationship?: Yes Discharge Plan Disposition Patient Disposition: Home Condition: Stable Discharge Details Clinical Impression: Eye pain Primary Care Provider: Jama Melgar ED Provider: Sarabjit Du Home Meds and New Rx's Prescriptions: New ofloxacin 0.3 % drops See Rx Instructions .ROUTE .COMPLEX Qty: 5 0RF Rx Instructions: put 1-2 drps into affected eye(s) every 2-4 h x 2 days, then 1-2 drps 4 times/day days 3-7 No Action diclofenac sodium 1 % gel 4 g topical QID Qty: 100 0RF Rx Instructions: apply to ankle, foot; for foot includes sole/toes/top of foot acetaminophen 325 MG tablet 650 mg PO PRN PRN ibuprofen 200 MG capsule 200 - 400 mg PO PRN PRN Discharge Instructions Instructions: Eye Pain (ED) Additional Instructions: Please return to the emergency department for any worsening symptoms or no improvement of your symptoms over the next couple of days.
[2023-07-21] MEDS: Fluorescein STRIPS 100/BOX 1 MG OP (08:13)
[2023-07-21] MEDS: Tetracaine 0.5% 4 ML BTL OP (08:13)
== END 2023-07-21 08:12 | disposition home or self-care (01) ==
PROVIDERS: Emergency Provider Emergency Medicine; PCP Family Medicine
DX: H57.11 Ocular pain, right eye (principal); I10 Essential (primary) hypertension; F17.210 Nicotine dependence, cigarettes, uncomplicated; Z86.73 Personal history of transient ischemic attack (TIA), and cerebral infarction without residual deficits
CPT/HCPCS: 99283

== ENCOUNTER 2023-07-22 23:04 | Emergency (ER) | payer OTHER, SELFPAY ==
[2023-07-22 23:22] VITALS: BP 156/90; PULSE 69; RESP 18; TEMP 36.8; O2SAT 97
[2023-07-22 23:38] VITALS: BP 156/90; PULSE 69; RESP 18; TEMP 36.8; O2SAT 97
--- NOTE | 2023-07-22 23:40 | ED.GENADUL_ITS ---
HPI General Mode of arrival: ambulatory . Date/Time Provider Initiated Documentation: 07/22/23 23:40 . Limitations to Documentation: no limitations . Information obtained by: patient, family, RN notes reviewed and old records rev iewed . HPI Narrative: Time seen was 0. The patient is a 72-year-old male who presents with right eye pain, radiating to the right confucianism. The patient was seen in the emergency department by Dr. Gordon yesterday for the same complaint. His intraocular pressure was obtained and was slightly elevated at 21. He was discharged on ocular antibiotics and advised to follow-up. He states during the day today his symptoms improved and then he was unable to sleep because of the eye pain this evening. He denies any worsening of his vision. He denies any other aggravating or alleviating factors. He denies any fevers or chills. He does have a history of cataract surgery in the left eye. He has been taking his ofloxacin ophthalmic ointment and diclofenac eyedrops as directed. He is also been taking p.o. acetaminophen for the pain. He has no history of immune compromise. He says that he has occasional nausea associated with the pain. The patient took 500 mg of acetaminophen prior to arrival. He had some discharge in his eye greater on the right than on the left but that has improved as has the redness he noticed yesterday. Related Data Home Medications Medication Instructions Recorded Confirmed acetaminophen 325 mg tablet 650 mg PO PRN PRN 02/15/18 07/23/23 ibuprofen 200 mg capsule 200 - 400 mg PO PRN PRN 02/17/18 07/23/23 diclofenac sodium 1 % topical gel 4 g topical QID #100 grams 05/24/23 07/23/23 ofloxacin 0.3 % eye drops See Rx Instructions ophthalmic 07/21/23 07/23/23 (eye) .COMPLEX #5 mL Previous Rx's Medication Instructions Recorded diclofenac sodium 1 % topical gel 4 g topical QID #100 grams 05/24/23 ofloxacin 0.3 % eye drops See Rx Instructions ophthalmic 07/21/23 (eye) .COMPLEX #5 mL Allergies Allergy/AdvReac Type Severity Reaction Status Date / Time coconut oil Allergy Unknown Itching Verified 07/23/23 08:16 pineapple Allergy Unknown Itching Verified 07/23/23 08:16 per pt report pneumococcal vaccine AdvReac Severe Vasovagal Verified 07/23/23 08:16 [From Pneumovax-23] syncope-requiring hosp.admission hydrocodone AdvReac Intermediate Bradycardia, Verified 07/23/23 08:16 hypotension General Stated Complaint: EyeProblem DEEPTI: 4 Review of Systems Narrative: see hpi Exam Narrative Exam Narrative: The patient is well-developed well-nourished male who is alert and oriented x 4. His GCS is 15. He is nontoxic and well-hydrated. The nurses verbally reported that the visual acuity in his right eye is 20/25 in the left eye which is 2020. This is unchanged from yesterday. I do not see this recorded in the nursing note. He is mildly hypertensive. He is not tachycardic. Const General: cooperative, healthy appearing, comfortable, no acute distress, well developed, well groomed and well hydrated Nutritional Appearance: average body habitus and well nourished Orientation: alert, awake and oriented x3 HENMT Head: normal to inspection, normocephalic and atraumatic Ears: hearing grossly normal bilaterally and external ears normal General nose exam: external nose normal, nares normal and no nasal discharge Face and sinus: normal facial exam, sinuses nontender and face symmetric Mouth: oral mucosae normal, lip normal, tongue normal, oropharynx normal, moist mucous membranes and other (Normal phonation. The patient is handling secretions.) Throat: posterior oropharynx normal and uvula midline Eyes Eyelids: eyelids normal Conjunctivae: conjunctivae normal Sclera: sclerae normal Cornea: corneas normal Pupils: PERRL EOM: EOM intact bilaterally and No nystagmus Direct ophthalmoscopy: normal light reflex Other: His pupils are equal round react to light. Extraocular muscles are intact. He is not significantly photophobic. There is no visible discharge in either eye. There is minimal conjunctival injection. With the ophthalmoscope there is no e vidence of papilledema. He is not significantly photophobic. The optic discs were visualized but not well. The Caleb-Pen was used to evaluate intraocular pressure which was 20.6 in the right eye after an average of 6 measurements and 16.7 in the left eye also after 6 measurements were taken. These are slightly improved from yesterday. Neck Neck: normal visual inspection, full ROM, no lymphadenopathy, no meningeal signs, trachea midline and supple Lymphatic: no lymphadenopathy noted Skin General skin exam: no rashes or lesions noted, turgor normal, no petechiae, no purpura and other (Skin is normal for ethnicity.) Lesions: no lesions Rashes: no rashes Trauma: no lacerations or abrasions Neuro General: patient alert, patient awake, patient oriented x3, moves all extremities, no meningeal signs, no focal motor deficits and CN's II-XI intact bilaterally Cranial Nerves: CN's II-XI intact bilaterally, PERRL, accommodation normal, EOM intact bilaterally, no nystagmus, facial strength normal, tongue midline, hearing normal and no nystagmus Cognition: normal cognition Speech: speech normal Gait: normal gait Motor: muscle tone normal throughout and strength 5/5 throughout Sensory Exam: no sensory deficits noted Extrem General: normal to inspection Psych Appearance: grossly normal Affect: normal affect Attitude: cooperative Thought Process: normal Thought Content: normal Insight: insight good Judgment: judgment good Other: The patient appears to have capacity make medical decisions. Course 4% tetracaine was instilled in both eyes prior to using the Caleb-Pen to check his intraocular pressure. He had significant improvement in his pain after instillation of the drops. The patient was advised to continue his ofloxacin drops as directed. He was advised to continue the diclofenac ophthalmic drops for pain. He was advised to take 1000 mg of acetaminophen every 4 hours as needed for pain and to take his previously ibuprofen as needed but not to combine this with p.o. diclofenac which she had been prescribed in the past. He was advised not to take more than 4000 mg of acetaminophen per day. He requested additional pain medication and was given a home pack for oxycodone. The patient and/or family was advised not to drink alcohol, drive or operate heavy machinery, or make important decisions while taking this medication. They were advised that it could cause drowsiness, constipation and habituation. They were advised to take for severe pain, not relieved by [id number] medication. The patient and/or family voiced understanding. They were advised to call [facility] eye care on Wednesday the at 8 AM. I have asked the community representative to send [facility] follow-up information. I have advised the patient to continue taking his medications as previously prescribed. I have advised him to return to the emergency department for any new or worrisome symptoms such as worsening pain, worsening vision, or any concerns. The patient/family/caregiver voiced agreement and understanding of the discharge instructions and plan for outpatient follow-up. There were advised to return to the Emergency Department for any new or worrisome symptoms or concerns. Vital Signs Vital signs: Vital Signs Temperature 36.8 C 07/22/23 23:22 Pulse 69 07/22/23 23:22 Respiratory Rate 18 07/22/23 23:22 Blood Pressure 156/90 H 07/22/23 23:22 Pulse Oximetry 97 07/22/23 23:22 Temperature 36.8 C 07/22/23 23:38 Temperature Source Skin 07/22/23 23:38 Pulse 69 07/22/23 23:38 Respiratory Rate 18 07/22/23 23:38 Respiratory Effort Normal, Non-Labored 07/22/23 23:36 Blood Pressure 156/90 H 07/22/23 23:38 Blood Pressure Position Sitting 07/22/23 23:38 Pulse Oximetry 97 07/22/23 23:38 Oxygen Delivery Method Room Air 07/22/23 23:38 Pain Level 10 07/22/23 23:38 Medical Decision Making This is a 72-year-old male who presents with right eye pain. He was seen in the emergency department yesterday and his visual acuity and intraocular pressure are slightly improved. I do not see signs of papilledema and his pain was significantly improved after instillation of topical tetracaine which is reassuring that the pain is not caused by something more serious such as temporal arteritis. He does not have any tenderness over the right confucianism and there is no rash. He tells me he had a slit-lamp examination yesterday that did not show any scratches or abnormalities of the cornea. His intraocular pressure is slightly elevated. The pain is not worsened by light and actually worsened at night. I doubt he has acute narrow angle closure glaucoma since his intraocular pressure has improved slightly from yesterday. I am not going to repeat this today. My plan is to discharge him home and advised him to follow- up with optometry on Wednesday the , and to return to the emergency department for any new or worsening symptoms. Differential Diagnosis Differential Diagnosis: Conjunctivitis, temporal arteritis, glaucoma Quality:SDOH Health Related Social Needs: No Data to Display PFSH All Active Problems Avascular necrosis of bone of foot (Acute) Left medial cuneiform Plantar fasciitis, left (Acute) Insufficiency of left posterior tibial tendon (Acute) Right conjunctivitis (Acute) Elevated IOP (Acute) Eye pain (Acute) Contusion of left foot, initial encounter (Acute) Spinal stenosis of lumbar region (Acute) Pain in left foot (Acute) Metatarsophalangeal (joint) sprain (Acute) Posterior tibial tendinitis of left leg (Acute) Plantar fasciitis (Acute) Hyperplastic colon polyp (Acute) Serrated adenoma of colon (Acute) Screening for colon cancer (Acute) Alcohol use (Acute) Abdominal aortic aneurysm (Acute) Cortical cataract of left eye (Acute) Nuclear sclerotic cataract of left eye (Acute) Posterior subcapsular age-related cataract of left eye (Acute) Medical History Tubular adenoma of colon History of TIA (transient ischemic attack) 2000 Cataract Leucocytosis Reaction to Pneumovax immunization Vasovagal syncope Pt. stated this was a reaction to the pneumovax Syncope HTN (hypertension) Carpal tunnel syndrome of left wrist Cervical radiculopathy Tendinitis of long head of biceps brachii of left shoulder Acromioclavicular joint separation Encounter for screening for other viral diseases Skin tag Trigger finger, right ring finger Injected: 10/13/2019 Discharge planning issues Fracture of five ribs of left side Surgical History History of colonoscopy (~05/2008) 02/2022 Posterior subcapsular age-related cataract, right eye Cortical cataract of right eye H/O elbow surgery right tennis elbow surgery S/P bilateral inguinal hernia repair Dr. 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 DOMINGUEZ Left Knee/ Dr. Dominguez Family History Father Hypertension Stroke Social History Smoking/Tobacco Use Status: Current every day Tobacco Type: cigarettes Smoking packs per day: 1 Smoking cigarettes per day: 20.0 Counseling given: provider counseling and patient declined Smoking risk assessment performed?: Yes Alcohol Intake: current Alcohol Intake frequency: 0-2 drinks per day Drug use: Never Substance use type: does not use Housing: house Current gender identity: male Do you feel safe at home: Yes Do you feel safe in your relationship?: Yes Discharge Plan Disposition Patient Disposition: Home Discharge Details Clinical Impression: Elevated IOP, Right conjunctivitis Primary Care Provider: Jama Melgar ED Provider: Shana Collado Home Meds and New Rx's Prescriptions: No Action diclofenac sodium 1 % gel 4 g topical QID Qty: 100 0RF Rx Instructions: apply to ankle, foot; for foot includes sole/toes/top of foot acetaminophen 325 MG tablet 650 mg PO PRN PRN ofloxacin 0.3 % drops See Rx Instructions .ROUTE .COMPLEX Qty: 5 0RF Rx Instructions: put 1-2 drps into affected eye(s) every 2-4 h x 2 days, then 1-2 drps 4 times/day days 3-7 ibuprofen 200 MG capsule 200 - 400 mg PO PRN PRN Discharge Instructions Instructions: Conjunctivitis (ED) Additional Instructions: 1. Alternate 1000mg of acetaminophen (Tylenol) every 3 hours with 400-600mg of ibuprofen (Motrin/Advil) as needed for pain or fever. Do not take more than 4000mg in 24 hours. Do not take acetaminophen if you have a history of liver disease. Do not take ibuprofen if you have a history of gastrointestinal bleeding or a history of kidney disease. 2. Continue the antibiotic eyedrops (ofloxacin) as directed for conjunctivitis. 3. You should receive a call from should be in the morning for follow-up appointment today. You may call the office in the morning and tell them you are seen here. 4. For severe pain take oxycodone 1 to 2 tablets every 6 hours as needed for severe pain. Do not drink alcohol, drive, operate heavy machinery or make important decisions while taking this medication. 5. Return here for any new or worrisome symptoms such as difficulty walking or talking or any concerns. Discharge Data Discharge Date/Time-TO BE ENTERED AT DEPARTURE: 07/23/23 00:43
[2023-07-23] MEDS: Tetracaine 0.5% 4 ML BTL OP (00:22)
--- NOTE | 2023-07-23 10:23 | NUR.NOTE ---
Nursing Note: PT needs follow up with [facility] for Elevated pressure & Pain in right eye. Brooke, ED
== END 2023-07-23 00:43 | disposition home or self-care (01) ==
PROVIDERS: Emergency Provider Emergency Medicine Emergency Medical Services; PCP Family Medicine
DX: H40.051 Ocular hypertension, right eye (principal); H10.9 Unspecified conjunctivitis; I10 Essential (primary) hypertension; F17.210 Nicotine dependence, cigarettes, uncomplicated; Z86.73 Personal history of transient ischemic attack (TIA), and cerebral infarction without residual deficits
CPT/HCPCS: 99283

== ENCOUNTER 2023-10-20 14:27 | Outpatient (CLI) | payer OTHER, SELFPAY ==
[2023-10-20 14:31] VITALS: BP 132/86; PULSE 81; RESP 20; TEMP 36.7; O2SAT 99
[2023-10-20 15:17] VITALS: PULSE 77; O2SAT 100
[2023-10-20] MEDS: Bupivacaine 0.5% Pres-Free 10 ML VIAL IJ (15:18)
[2023-10-20] MEDS: methylPREDNISolone ACETATE 40 MG/ML VIAL IJ (15:18)
[2023-10-20] MEDS: Nerve Block Tray 1 EACH MC (15:18)
[2023-10-20] MEDS: Lidocaine 2% Pres-Free 5 ML VIAL IJ (15:19)
--- NOTE | 2023-10-20 16:35 | PDOC.PAIN_ITS ---
Date of service: 10/20/23 Time of Service: 16:35 Pain Managment Procedure Note Procedure Note Procedure Note: ULTRASOUND GUIDED right Lateral Femoral Cutaneous nerve block Pre-Procedural Evaluation: Edilson Charles has been referred to the [facility] for an Ultrasound Guided right lateral femoral cutaneous nerve block injection for a chief complaint of right thigh pain. Pre-procedure Pain Score: 6/10 Dx: Meralgia Peresthetica Patient was interviewed and the medical record reviewed. There were no medical, pharmacologic, radiographic, or other structural contraindications to preforming an ultrasound guided injection. Risks and expected side effects as well as potential benefits of the procedure were reviewed. The patient consent form was signed and witnessed. Standard time-out procedure was performed. The use of direct ultrasound visualization of the needle (rather than a non- guided injection) was required to increase patient safety by excluding inadvertent intramuscular, intratendinous, or intraneural needle placement and minimizing bleeding by avoiding osteochondral or vascular injury from the needle. Additionally, the increased accuracy of placement may increase clinical effectiveness and will allow higher diagnostic specificity when evaluating effectiveness of this injection. Procedure Description: The patient was placed in the supine position and automated blood pressure cuff and pulse oximeter applied for monitoring during the procedure and recorded in the medical record. Pre-injection ultrasound scanning of the area of interest was performed using linear transducer, identifying relevant anatomy, landmarks, and neurovascular structures allowing for optimal needle path. The site was then prepared in the usual sterile fashion, using thorough Chlorhexadine preparation of the skin and sterile draping. The same ultrasound transducer was then passed into the sterile field using sterile probe cover and sterile ultrasound gel. The injection target was again visualized. Skin and subcutaneous tissues were anesthetized with 3 mL of 1% Lidocaine. A 22 guage [employer] ultrasound needle inch needle was placed under live ultrasound guidance, using an in-plane approach, to the target area. After visualization of the needle tip at the target area, 1 cc of Depomedrol (80mg/cc) was followed by 5 cc of 0.5% Bupivacaine was delivered after negative aspiration for blood. Ultrasound images were captured and stored for documentation purposes. Post-procedure Pain Score:0/10 Vital signs were stable throughout the procedure and were as recorded in the docflowsheet by the nursing staff. Follow up plans and appointments were discussed with the patient.Post procedure instruction was given as documented in nursing documentation and having met discharge criteria, they were discharged from the [facility]. COMMENTS: he did well with the procedure. Rafa Patel DO, MPH [facility]
== END 2023-10-20 14:28 | disposition home or self-care (01) ==
LOC: PC 14:27
PROVIDERS: PCP Family Medicine; Visit Provider Preventive Medicine Occupational Medicine
DX: G57.11 Meralgia paresthetica, right lower limb (principal)
CPT/HCPCS: 64447; J0665; J1010

== ENCOUNTER 2024-05-01 09:52 | Outpatient (REF) | payer OTHER, SELFPAY ==
--- NOTE | 2024-05-01 09:44 | SKI_PTH ---
PATIENT: Gabino Charles) LOC: [facility]#:[id number] AGE/SX: 73/M ROOM: RE05/01/[address]: Saray Moreland : 1950 BED: DIS: 05/01/2024 SPEC #: [id number] RECD: 05/01/24 11:44 STATUS: WENDY REQ #: [id number] NIELS: 05/01/24 09:[address]: Saray Moreland DEPT: Surgical Specimen RECD BY: Rita Danielle ENTERED: 05/01/24 11:45 SP TYPE: MICHELLE KING DR: Mikie Jacobs Tissues: 1 - SKIN BIOPSY(SHAVE/PUNCH) Procedures: SKIN LEVEL 4 Comments: [id number]
== END 2024-05-01 09:53 | disposition home or self-care (01) ==
LOC: LBN 09:52
PROVIDERS: PCP Student in an Organized Health Care Education/Training Program; Referring Provider Surgery; Visit Provider Surgery
DX: C44.629 Squamous cell carcinoma of skin of left upper limb, including shoulder (principal)
CPT/HCPCS: 88305

== ENCOUNTER 2025-04-19 14:15 | Outpatient (CLI) | payer OTHER, SELFPAY ==
--- NOTE | 2025-04-19 09:30 | DI.RAD_ITS ---
Exam(s) XR KNEE RT 3V AP,LAT,SUJEY EXAM: XR KNEE RT 3V AP,LAT,SUJEY CLINICAL HISTORY: RIGHT KNEE PAIN. TECHNIQUE: 2D digital imaging was performed. Three images were obtained. Merchant's, AP and lateral views were obtained. COMPARISON: CR RIGHT KNEE LIMITED 1 OR 2 VIEW from 08/19/2011 CR XR LUMBAR SPINE AP, LAT from 05/17/2023 FINDINGS: BONES: There are post operative changes of a right total knee arthroplasty present. No fracture or dislocation. JOINTS: The orthopedic hardware is in good position. There is lucency seen at the anterior and medial bone-prosthetic interface in the proximal tibia. SOFT TISSUE: Normal. IMPRESSION: There is again seen a right total knee arthroplasty. There is lucency seen at the anterior medial aspect of the tibial component. This may represent loosening. Please correlate clinically. DATA REPOSITORY: RADIATION DOSE DELIVERED:
== END 2025-04-19 14:16 | disposition home or self-care (01) ==
LOC: DIORS 14:44
PROVIDERS: PCP Student in an Organized Health Care Education/Training Program; Visit Provider Student in an Organized Health Care Education/Training Program
DX: Z96.651 Presence of right artificial knee joint (principal); M25.561 Pain in right knee
CPT/HCPCS: 73562

== ENCOUNTER → 2025-05-30 00:58 | Outpatient (CLI) | payer OTHER, SELFPAY ==
--- NOTE | 2025-05-30 07:00 | DI.CT_ITS ---
Exam(s) CT LOWER EXTREMITY RT WO EXAM: CT LOWER EXTREMITY RT WO CLINICAL HISTORY: ? LOOSENING prosthetic device, rt knee pain, T84.84xa. TECHNIQUE: Imaging Protocol: Axial computed tomography images with coronal and sagittal reformatted images were created and reviewed. COMPARISON: CR RIGHT KNEE LIMITED 1 OR 2 VIEW from 08/19/2011 CR XR KNEE RT 3V AP,LAT,SUJEY from 04/19/2025 FINDINGS: Bones: The patient has a right total knee arthroplasty. There is again seen a lucency beneath the medial tibial component of the prosthesis. The orthopedic hardware otherwise appears unremarkable. The bones are intact. There are enthesophytes at the anterior patella. There is a small joint effusion. There is a small popliteal cyst. Soft Tissues: Normal. IMPRESSION: There is again seen lucency around the medial aspect tibial component of the arthroplasty at the bone prosthesis interface. Loosening cannot be excluded.. RADIATION DOSE DELIVERED: 156.88mGy.cm Total DLP 156.88mGy.cm Total DLP DATA REPOSITORY: All CT scans at this facility are submitted to the National Radiology Data Registry (NRDR) Dose Index Registry (DIR) with the [employer] ([employer]). RADIATION OPTIMIZATION: All CT scans at this facility use at least one of these dose optimization techniques: automated exposure control; mA and/or kV adjustment per patient size (includes targeted exams where dose is matched to clinical indication); or iterative reconstruction.
--- NOTE | 2025-05-30 07:11 | DI.NM_ITS ---
Exam(s) NM BONE SCAN 3 PHASE EXAM: NM BONE SCAN 3 PHASE CLINICAL HISTORY: ? loosening prosthetic device, rt knee pain, t84.84xa,m25.561. TECHNIQUE: Injected Dose: 25 mCi Tc-99m MDP COMPARISON: CT CT CHEST LUNG CANCER SCREEN from 10/25/2023 CR XR KNEE RT 3V AP,LAT,SUJEY from 04/19/[address] LOWER EXTREMITY RT WO from 05/30/2025 FINDINGS: Perfusion images: Perfusion flow phase images reveal no significant asymmetry in the region of the knees. Blood Pool images: Photopenic zones in both knees are evident, consistent with bilateral knee prostheses. On the blood pool images there is no abnormal focal radiopharmaceutical accumulation on either side Delayed images (3.5 hours post injected): There is relatively symmetrical radiopharmaceutical uptake related to the tibial components of the prosthesis in both knees but no impressive focal uptake, and indeed the area described on the recent plain films at the medial bone prosthesis interface in the proximal right tibia does not exhibit significant asymmetric uptake when compared to the other compartments. Entire skeleton: There is asymmetric uptake in the great toe metatarsophalangeal joint of the left foot consistent with degenerative changes at this articulation. Similar findings not seen in the opposite-right foot. No abnormal uptake seen in the hips and pelvis. There is a single focus of increased uptake in the spinal column which is on the right side of the mid thoracic spinal column at T7 level and most probably represents degenerative change. There is significant focal uptake seen in the anterolateral aspect of the left 7th rib and there is also focal uptake evident in the adjacent left 6 rib. These are most probably related to prior rib fractures. There is no abnormal uptake in the opposite-right rib cage nor in the clavicles and shoulders nor in the scapulae.. There is no abnormal uptake in the skull, facial bones, and cervical spine. IMPRESSION: Bilateral knee prostheses with findings as above which are not convincing for loosening of the prosthesis on either side. Other incidental findings in the skeleton consistent with probable prior fractures in the left 6th and 7th ribs and degenerative changes in the great toe metatarsophalangeal joint of the left foot. DATA REPOSITORY:
[2025-05-30 11:01] LABS: ESR 21 mm/hr (0-20); HCT 44.2 % (40.0-50.0); HGB 14.9 g/dL (13.5-17.5); MCH 31.7 pg (27.0-33.0); MCHC 33.7 % (32.0-36.0); MCV 94 fL (80-95); MPV 8.8 fL (8.0-11.0); Platelet Count 263 10^3/uL (130-400); RBC 4.70 10^6/uL (4.36-5.78); RDW 14.0 % (11.8-14.1); RDW-SD 48.6 fL; WBC 6.97 10^3/uL (4.4-10.8)
== END ==
LOC: DI 00:58
PROVIDERS: PCP Student in an Organized Health Care Education/Training Program; Visit Provider Student in an Organized Health Care Education/Training Program
DX: T84.84XA Pain due to internal orthopedic prosthetic devices, implants and grafts, initial encounter (principal); M25.561 Pain in right knee
CPT/HCPCS: 85027; 85652; 73700; 78315